=== PATIENT | male | born 1940 | race Caucasian/White ===

== ENCOUNTER 2016-11-06 07:42 | Emergency (ER) | payer MEDICARE, OTHER ==
[2016-11-06] MEDS ORDERED: amLODIPine 5 MG TABLET PO STA (09:21)
[2016-11-06] MEDS ORDERED: amLODIPine 5 MG TABLET ONE (09:27)
== END 2016-11-06 09:39 | disposition home or self-care (01) ==
DX: I15.9 Secondary hypertension, unspecified (principal); E87.1 Hypo-osmolality and hyponatremia; R73.9 Hyperglycemia, unspecified; I49.3 Ventricular premature depolarization; F03.90 Unspecified dementia, unspecified severity, without behavioral disturbance, psychotic disturbance, mood disturbance, and anxiety
CPT/HCPCS: 80053; 81003; 83690; 85025; 93005; 93010; 99283; 99285; A9270

== ENCOUNTER 2016-12-14 09:40 | Outpatient (CLI) | payer MEDICARE, OTHER | END 2016-12-14 09:41 | disposition home or self-care (01) | DX: I10 Essential (primary) hypertension (principal) ==

== ENCOUNTER 2017-06-06 07:26 | Outpatient (CLI) | payer MEDICARE, OTHER ==
--- NOTE | 2017-06-06 09:10 | Ultrasound Report ---
ULTRASOUND ANTERIOR ABDOMINAL WALL: 06/06/2017 CLINICAL INDICATION: Anterior swelling. TECHNIQUE: Real-time scanning was performed with patient service representative static images obtained. FINDINGS: Ultrasound of the region of swelling identified by the patient in the epigastric region wa s performed. There is no evidence of an abdominal wall hernia. There is an incidental 5-mm lipoma i n the anterior subcutaneous fat. No other mass is identified. IMPRESSION: NO EVIDENCE OF AN ANTERIOR ABDOMINAL WALL HERNIA. JOB #: [id number] EXT JOB #:[id number]
== END 2017-06-06 07:27 | disposition home or self-care (01) ==
LOC: DI 07:26
PROVIDERS: ATTEND Internal Medicine Gastroenterology
DX: R19.00 Intra-abdominal and pelvic swelling, mass and lump, unspecified site (principal)
CPT/HCPCS: 76705

== ENCOUNTER 2018-01-22 07:10 | Outpatient (CLI) | payer MEDICARE, OTHER ==
[2018-01-22 12:48] LABS: ALBUMIN 4.4 g/dL (3.2-5.5); ALBUMIN/GLOBULIN RATIO 1.6 (1.0-2.2); BILIRUBIN,TOTAL 0.6 mg/dL (0.2-1.0); CALCIUM 9.3 mg/dL (8.5-10.3); CREATININE 0.9 mg/dL (0.6-1.2); TOTAL PROTEIN 7.2 g/dL (6.7-8.2)
[2018-01-22 12:59] LABS: HB2 TOTAL 12.4 g/dL; HEMOGLOBIN A1C 0.46 g/dL; HEMOGLOBIN A1C % 5.5 % (4.6-6.2)
== END 2018-01-22 07:11 | disposition home or self-care (01) ==
LOC: LAB.WCP 07:10
PROVIDERS: ATTEND Family Medicine
DX: E11.9 Type 2 diabetes mellitus without complications (principal); R27.8 Other lack of coordination; I63.9 Cerebral infarction, unspecified; I10 Essential (primary) hypertension
CPT/HCPCS: 36415; 80053; 82043; 83036

== ENCOUNTER 2018-06-11 08:21 | Outpatient (CLI) | payer MEDICARE, OTHER ==
[2018-06-11 12:25] LABS: BASOPHILS # (AUTO) 0.1 10^3/uL (0.0-0.1); BASOPHILS % (AUTO) 0.8 %; EOSINOPHILS # (AUTO) 0.3 10^3/uL (0.0-0.7); EOSINOPHILS % (AUTO) 4.2 %; HGB - HEMOGLOBIN 12.4 g/dL (14.0-18.0); LYMPHOCYTES # (AUTO) 1.4 10^3/uL (1.5-3.5); LYMPHOCYTES % (AUTO) 20.6 %; MEAN CORPUSCULAR HEMOGLOBIN 35.4 pg (27.0-31.0); MEAN CORPUSCULAR VOLUME 98.3 fL (80.0-94.0); MEAN PLATELET VOLUME 10.2 fL (7.4-11.4); MONOCYTES # (AUTO) 0.6 10^3/uL (0.0-1.0); MONOCYTES % (AUTO) 8.8 %; NEUTROPHILS # (AUTO) 4.4 10^3/uL (1.5-6.6); NEUTROPHILS % (AUTO) 65.6 %; PLT - PLATELET COUNT 165 10^3/uL (130-450); RED CELL DISTRIBUTION WIDTH 12.6 % (12.0-15.0); WHITE BLOOD COUNT 6.8 x10^3/uL (4.8-10.8)
[2018-06-11 13:20] LABS: HB2 TOTAL 12.9 g/dL; HEMOGLOBIN A1C 0.52 g/dL; HEMOGLOBIN A1C % 5.8 % (4.6-6.2)
[2018-06-11 13:27] LABS: CHOL/HDL RATIO 2.3 (<5.0); CHOLESTEROL 118 mg/dL; HDL CHOLESTEROL 51 mg/dL; LDL CHOLESTEROL,CALCULATED 54 mg/dL; LDL/HDL RATIO 1.1 (<3.6); VLDL CHOLESTEROL 13 mg/dL
== END 2018-06-11 08:22 | disposition home or self-care (01) ==
LOC: LAB.WCP 08:21
PROVIDERS: ATTEND Physician Assistant Medical
DX: E11.9 Type 2 diabetes mellitus without complications (principal); I63.9 Cerebral infarction, unspecified; I10 Essential (primary) hypertension
CPT/HCPCS: 36415; 80061; 83036; 83540; 83721; 84443; 84466; 85025

== ENCOUNTER 2018-06-13 08:00 | Outpatient (CLI) | payer MEDICARE, OTHER ==
[2018-06-13 12:57] LABS: FERRITIN 162.8 ng/mL (23.9-336.2)
[2018-06-13 13:01] LABS: FOLATE 20.22 ng/mL (5.90 - >24.8)
[2018-06-13 13:02] LABS: ALBUMIN 4.1 g/dL (3.2-5.5); ALBUMIN/GLOBULIN RATIO 1.4 (1.0-2.2); BILIRUBIN,TOTAL 0.7 mg/dL (0.2-1.0); CALCIUM 9.1 mg/dL (8.5-10.3); TOTAL PROTEIN 7.1 g/dL (6.7-8.2)
== END 2018-06-13 08:01 ==
LOC: LAB.WCP 08:00
PROVIDERS: ATTEND Family Medicine
DX: D64.9 Anemia, unspecified (principal); E11.9 Type 2 diabetes mellitus without complications
CPT/HCPCS: 36415; 80053; 82607; 82728; 82746; 83540; 84466

== ENCOUNTER 2018-07-18 11:31 | Outpatient (CLI) | payer MEDICARE, OTHER ==
[2018-07-18 18:37] LABS: BASOPHILS % (AUTO) 0.7 %; EOSINOPHILS # (AUTO) 0.2 10^3/uL (0.0-0.7); EOSINOPHILS % (AUTO) 3.6 %; HGB - HEMOGLOBIN 12.5 g/dL (14.0-18.0); LYMPHOCYTES # (AUTO) 1.4 10^3/uL (1.5-3.5); LYMPHOCYTES % (AUTO) 20.4 %; MEAN CORPUSCULAR HEMOGLOBIN 34.9 pg (27.0-31.0); MEAN CORPUSCULAR HGB CONC 34.9 g/dL (32.0-36.0); MEAN CORPUSCULAR VOLUME 99.7 fL (80.0-94.0); MEAN PLATELET VOLUME 10.4 fL (7.4-11.4); MEAN RETIC VALUE 117.7; MONOCYTES # (AUTO) 0.5 10^3/uL (0.0-1.0); NEUTROPHILS # (AUTO) 4.6 10^3/uL (1.5-6.6); NEUTROPHILS % (AUTO) 67.3 %; PLT - PLATELET COUNT 168 10^3/uL (130-450); RED BLOOD COUNT 3.58 10^6/uL (4.70-6.10); RED CELL DISTRIBUTION WIDTH 12.6 % (12.0-15.0); WHITE BLOOD COUNT 6.8 x10^3/uL (4.8-10.8)
[2018-07-18 20:00] LABS: % IRON SATURATION 31 % (20-50); IRON 82 ug/dL (45-182); TOTAL IRON BINDING CAPACITY 262 ug/dL (250-450); TRANSFERRIN 187 mg/dL (180-329)
== END 2018-07-18 11:32 | disposition home or self-care (01) ==
LOC: LAB.WCP 11:31
PROVIDERS: ATTEND Family Medicine
DX: D64.9 Anemia, unspecified (principal)
CPT/HCPCS: 36415; 82728; 83540; 84466; 85025; 85044

== ENCOUNTER 2018-10-02 08:00 | Outpatient (CLI) | payer MEDICARE, OTHER ==
[2018-10-02 13:19] LABS: BASOPHILS % (AUTO) 0.5 %; EOSINOPHILS # (AUTO) 0.3 10^3/uL (0.0-0.7); HGB - HEMOGLOBIN 12.4 g/dL (14.0-18.0); LYMPHOCYTES # (AUTO) 1.6 10^3/uL (1.5-3.5); LYMPHOCYTES % (AUTO) 24.7 %; MEAN CORPUSCULAR HEMOGLOBIN 34.7 pg (27.0-31.0); MEAN CORPUSCULAR HGB CONC 35.2 g/dL (32.0-36.0); MEAN CORPUSCULAR VOLUME 98.6 fL (80.0-94.0); MEAN PLATELET VOLUME 10.5 fL (7.4-11.4); MONOCYTES # (AUTO) 0.6 10^3/uL (0.0-1.0); MONOCYTES % (AUTO) 9.4 %; NEUTROPHILS # (AUTO) 4.1 10^3/uL (1.5-6.6); NEUTROPHILS % (AUTO) 61.4 %; PLT - PLATELET COUNT 152 10^3/uL (130-450); RED BLOOD COUNT 3.56 10^6/uL (4.70-6.10); RED CELL DISTRIBUTION WIDTH 12.8 % (12.0-15.0); WHITE BLOOD COUNT 6.7 x10^3/uL (4.8-10.8)
[2018-10-02 13:38] LABS: ALBUMIN 4.3 g/dL (3.2-5.5); ALBUMIN/GLOBULIN RATIO 1.5 (1.0-2.2); BILIRUBIN,TOTAL 0.7 mg/dL (0.2-1.0); CALCIUM 9.4 mg/dL (8.5-10.3); CREATININE 1.1 mg/dL (0.6-1.2); TOTAL PROTEIN 7.1 g/dL (6.7-8.2)
[2018-10-02 13:50] LABS: HB2 TOTAL 12.9 g/dL; HEMOGLOBIN A1C 0.52 g/dL; HEMOGLOBIN A1C % 5.8 % (4.6-6.2)
== END 2018-10-02 23:59 | disposition home or self-care (01) ==
LOC: LAB.WCP 08:00
PROVIDERS: ATTEND Family Medicine
DX: E11.9 Type 2 diabetes mellitus without complications (principal)
CPT/HCPCS: 36415; 80053; 82043; 83036; 85025

== ENCOUNTER 2019-11-09 11:32 | Outpatient (CLI) | payer MEDICARE, OTHER ==
[2019-11-09 12:27] LABS: CHOLESTEROL 142 mg/dL; HDL CHOLESTEROL 48 mg/dL; LDL CHOLESTEROL,CALCULATED 69 mg/dL; LDL/HDL RATIO 1.4 (<3.6); VLDL CHOLESTEROL 25 mg/dL
== END 2019-11-09 11:33 | disposition home or self-care (01) ==
LOC: LAB 11:32
PROVIDERS: ATTEND Psychiatry & Neurology Neurology
DX: I63.9 Cerebral infarction, unspecified (principal)
CPT/HCPCS: 36415; 80061; 83721

== ENCOUNTER 2019-12-14 14:55 | Outpatient (CLI) | payer MEDICARE, OTHER ==
[2019-12-14 18:19] LABS: BASOPHILS # (AUTO) 0.1 10^3/uL (0.0-0.1); BASOPHILS % (AUTO) 0.7 %; EOSINOPHILS # (AUTO) 0.2 10^3/uL (0.0-0.7); EOSINOPHILS % (AUTO) 2.8 %; LYMPHOCYTES # (AUTO) 1.8 10^3/uL (1.5-3.5); LYMPHOCYTES % (AUTO) 25.9 %; MEAN CORPUSCULAR HEMOGLOBIN 32.5 pg (27.0-31.0); MEAN CORPUSCULAR HGB CONC 32.9 g/dL (32.0-36.0); MEAN CORPUSCULAR VOLUME 98.8 fL (80.0-94.0); MEAN PLATELET VOLUME 11.5 fL (7.4-11.4); MONOCYTES # (AUTO) 0.6 10^3/uL (0.0-1.0); NEUTROPHILS # (AUTO) 4.4 10^3/uL (1.5-6.6); NEUTROPHILS % (AUTO) 62.3 %; PLT - PLATELET COUNT 182 10^3/uL (130-450); RED BLOOD COUNT 3.38 10^6/uL (4.70-6.10); RED CELL DISTRIBUTION WIDTH 11.9 % (12.0-15.0); WHITE BLOOD COUNT 7.1 x10^3/uL (4.8-10.8)
[2019-12-14 18:43] LABS: HB2 TOTAL 11.6 g/dL; HEMOGLOBIN A1C 0.45 g/dL; HEMOGLOBIN A1C % 5.7 % (4.6-6.2)
[2019-12-14 18:46] LABS: ALBUMIN 3.9 g/dL (3.2-5.5); ALBUMIN/GLOBULIN RATIO 1.3 (1.0-2.2); BILIRUBIN,TOTAL 0.4 mg/dL (0.2-1.0); CALCIUM 9.1 mg/dL (8.5-10.3); TOTAL PROTEIN 6.9 g/dL (6.7-8.2)
[2019-12-14 18:49] LABS: CREATININE,URINE 155.1 mg/dL; PROTEIN/CREATININE RATIO,URINE 0.1 (<=0.2)
== END 2019-12-14 23:59 | disposition home or self-care (01) ==
LOC: LAB.WCP 14:55
PROVIDERS: ATTEND Family Medicine
DX: D64.9 Anemia, unspecified (principal); R26.89 Other abnormalities of gait and mobility; E11.9 Type 2 diabetes mellitus without complications; I10 Essential (primary) hypertension; R63.0 Anorexia
CPT/HCPCS: 36415; 80053; 82570; 83036; 84134; 84156; 84443; 85025

== ENCOUNTER 2020-03-10 11:50 | Outpatient (CLI) | payer MEDICARE, OTHER | END 2020-03-10 11:51 | disposition critical access hospital (66) | LOC: EMS 11:50 | PROVIDERS: ATTEND Surgery | DX: Z03.89 Encounter for observation for other suspected diseases and conditions ruled out (principal); Z79.02 Long term (current) use of antithrombotics/antiplatelets; W18.39XA Other fall on same level, initial encounter; W22.8XXA Striking against or struck by other objects, initial encounter; Y92.481 Parking lot as the place of occurrence of the external cause | CPT/HCPCS: A0425; A0429 ==

== ENCOUNTER 2020-03-10 11:54 | Emergency (ER) | payer MEDICARE, OTHER ==
[2020-03-10 12:23] LABS: BASOPHILS # (AUTO) 0.1 10^3/uL (0.0-0.1); EOSINOPHILS # (AUTO) 0.3 10^3/uL (0.0-0.7); EOSINOPHILS % (AUTO) 4.8 %; HGB - HEMOGLOBIN 10.8 g/dL (14.0-18.0); LYMPHOCYTES # (AUTO) 1.6 10^3/uL (1.5-3.5); LYMPHOCYTES % (AUTO) 22.8 %; MEAN CORPUSCULAR HEMOGLOBIN 33.8 pg (27.0-31.0); MEAN CORPUSCULAR HGB CONC 34.3 g/dL (32.0-36.0); MEAN CORPUSCULAR VOLUME 98.4 fL (80.0-94.0); MEAN PLATELET VOLUME 10.4 fL (7.4-11.4); MONOCYTES # (AUTO) 0.7 10^3/uL (0.0-1.0); MONOCYTES % (AUTO) 9.2 %; NEUTROPHILS # (AUTO) 4.4 10^3/uL (1.5-6.6); NEUTROPHILS % (AUTO) 61.8 %; PLT - PLATELET COUNT 171 10^3/uL (130-450); RED CELL DISTRIBUTION WIDTH 11.9 % (12.0-15.0); WHITE BLOOD COUNT 7.1 x10^3/uL (4.8-10.8)
[2020-03-10 12:34] LABS: ALBUMIN/GLOBULIN RATIO 1.3 (1.0-2.2); BILIRUBIN,TOTAL 0.8 mg/dL (0.2-1.0); CALCIUM 9.1 mg/dL (8.5-10.3); CREATININE 1.2 mg/dL (0.6-1.2); TOTAL PROTEIN 7.1 g/dL (6.7-8.2)
[2020-03-10] MEDS: SODIUM CHLORIDE 0.9% 1,000 ML IV STA (12:48)
--- NOTE | 2020-03-10 13:03 | XRAY Report ---
Reason: Chest Pain Procedure Date: 03/10/2020 Accession Number: [id number] / [id number] Procedure: XR - Chest 1 View X-Ray CPT Code: 12241 Final Report FULL RESULT: EXAM: CHEST RADIOGRAPHY EXAM DATE: 03/10/2020 12:13 PM. CLINICAL HISTORY: Chest Pain. COMPARISON: None. TECHNIQUE: 1 view. FINDINGS: Lungs/Pleura: No focal opacities evident. No pleural effusion. No pneumothorax. Decreased lung volumes Mediastinum: Within exam limitations, the cardiomediastinal contour is normal. Other: Cardiac rhythm monitor IMPRESSION: No active cardiopulmonary disease RADIA
--- NOTE | 2020-03-10 13:31 | CT Report ---
Reason: fall/trauma Procedure Date: 03/10/2020 Accession Number: [id number] / [id number] Procedure: CT - CERVICAL SPINE WO CPT Code: Final Report FULL RESULT: EXAM: CT CERVICAL SPINE WITHOUT CONTRAST DATE: 03/10/2020 12:39 PM. HISTORY: Acute pain due to trauma. COMPARISONS: HEAD W/O 09/16/2017 11:42 AM. TECHNIQUE: Thin-section axial images were acquired of the cervical spine without contrast. Post-processing: Coronal and sagittal reformats. Other: None. In accordance with CT protocol optimization, one or more of the following dose reduction techniques were utilized for this exam: automated exposure control, adjustment of mA and/or KV based on patient size, or use of iterative reconstructive technique. FINDINGS: Alignment: No scoliosis or spondylolisthesis. Bones: No fracture or bone lesion. Interspace Levels/Facets: There is mild diffuse degenerative disk and facet disease seen throughout the mid and lower aspects of the cervical spine. The bony central canal is relatively pain. Musculature: Normal. No fatty atrophy. Other: The paravertebral and prevertebral soft tissues are unremarkable. The lung apices are clear. IMPRESSION: No acute findings. Mild degenerative changes seen. RADIA
--- NOTE | 2020-03-10 13:45 | CT Report ---
Reason: head trauma, anticoagulated Procedure Date: 03/10/2020 Accession Number: [id number] / [id number] Procedure: CT - HEAD WO CPT Code: Final Report FULL RESULT: EXAM: CT HEAD EXAM DATE: 03/10/2020 12:39 PM. CLINICAL HISTORY: Head trauma, anticoagulated. Fall/trauma. COMPARISON: HEAD W/O 09/16/2017 11:42 AM Report from a BRAIN MRI W/O 09/17/2017 10:09 AM (images not presently available).. TECHNIQUE: Multiaxial CT images were obtained from the foramen magnum to the vertex. Reformats: Sagittal and coronal. IV contrast: None. In accordance with CT protocol optimization, one or more of the following dose reduction techniques were utilized for this exam: automated exposure control, adjustment of mA and/or KV based on patient size, or use of iterative reconstructive technique. FINDINGS: Parenchyma: No intraparenchymal hemorrhage. No evidence of mass, midline shift, or CT findings of acute infarction. Berrios-white differentiation is distinct. Diffuse chronic microangiopathic white matter changes are redemonstrated. 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 Extraaxial Spaces: Normal for age. No subdural or epidural collections identified. Ventricles: Lateral ventricles and third ventricle prominence, greater than the sulcal prominence, again demonstrated, without significant change. Sinuses and orbits: Imaged paranasal sinuses, orbits, and mastoids show no significant abnormality. Bones: No evidence of fracture or calvarial defect. Other: None. IMPRESSION: 1. Generalized age-related cortical atrophic changes without evidence of definite acute intracranial abnormality. No intrarenal hemorrhage. 2. 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 3. Ventricular prominence, greater than sulcal prominence, without significant change. Differential diagnosis includes central volume loss and normal pressure hydrocephalus. RADIA
--- NOTE | 2020-03-10 14:04 | ED Physician Documentation ---
History of Present Illness - Stated complaint Stated Complaint: GLF - Chief complaint Chief Complaint: Trauma Hd/Nk - History obtained from History obtained from: Patient - Additonal information Additional information: Patient comes emergency department via EMS after losing his balance and falling against a parked car next to him while in the store parking lot with his . Patient states he does not remember the incident at all. He has no complaints, stating only that he is "embarrassed. Patient denies any nausea or vomiting. No chest pain or shortness of breath. He has had several strokes in the past and has some degree of poor balance at baseline, as well as mild slowness of response. Patient denies any worsening of this recently. PD PAST MEDICAL HISTORY - Past Medical History Past Medical History: Yes Cardiovascular: Hypertension GI: GERD - Past Surgical History Past Surgical History: Yes HEENT: Tonsil/Adenoidectomy - Present Medications Home Medications: Ambulatory Orders Medication Instructions Recorded Confirmed Omeprazole [PriLOSEC] 20 mg PO DAILY 11/06/16 11/10/19 Chlorthalidone 12.5 mg PO DAILY 09/17/17 11/10/19 Cranberry Fruit Extract [Cranberry] 600 mg PO BID 09/17/17 11/10/19 Krill/[place]-3/Dha/Epa/Lipids 1 each PO DAILY 09/17/17 11/10/19 [Krill Oil 350 mg Softgel] Loratadine [Claritin] 10 mg PO DAILY 09/17/17 11/10/19 Multivitamin [Theragran] 1 tab PO DAILY 09/17/17 11/10/19 [place]-3/Dha/Epa/Fish Oil [Fish Oil 1,000 mg PO BID 09/17/17 11/10/19 1,000 mg Softgel] Atorvastatin [Lipitor] 10 mg PO QPM 12/30/18 11/10/19 Clopidogrel [Plavix] 75 mg PO ONCE 12/30/18 11/10/19 Tamsulosin [Flomax] 0.4 mg PO ONCE 12/30/18 11/10/19 Aspirin [Elodia] 81 mg PO DAILYWM 01/20/19 11/10/19 raNITIdine HCL [Zantac] 150 mg PO DAILY 04/21/19 11/10/19 - Allergies Allergies/Adverse Reactions: Allergies Allergy/AdvReac Type Severity Reaction Status Date / Time amlodipine Allergy Unknown Verified 03/11/20 07:55 melon Allergy Anaphylaxis Verified 03/10/20 12:02 Tetanus Vaccines and Toxoid Allergy Anaphylaxis Verified 03/10/20 12:02 cillins Allergy Unknown Uncoded 03/10/20 12:02 - Social History Does the pt smoke?: No Smoking Status: Never smoker Does the pt drink ETOH?: No Does the pt have substance abuse?: No - Immunizations Immunizations are current?: Yes - POLST Patient has POLST: No Results - Vitals Vitals: Oxygen O2 Source Room air - Labs Labs: Laboratory Tests 03/10/20 03/10/20 03/10/20 12:00 12:00 12:00 WBC 7.1 RBC 3.20 L Hgb 10.8 L Hct 31.5 L MCV 98.4 H MCH 33.8 H MCHC 34.3 RDW 11.9 L Plt Count 171 MPV 10.4 Neut # (Auto) 4.4 Lymph # (Auto) 1.6 [place] # (Auto) 0.7 Eos # (Auto) 0.3 Baso # (Auto) 0.1 Absolute Nucleated RBC 0.00 Nucleated RBC % 0.0 Sodium 138 Potassium 4.2 Chloride 105 Carbon Dioxide 26 Anion Gap 7.0 BUN 25 H Creatinine 1.2 Estimated GFR (MDRD) 58 L Glucose 126 H Calcium 9.1 Total Bilirubin 0.8 AST 23 ALT 21 Alkaline Phosphatase 63 Troponin I High Sens < 2.3 L Total Protein 7.1 Albumin 4.0 Globulin 3.1 Albumin/Globulin Ratio 1.3 Lipase 37 - Rads (name of study) CT head Radiology: Final report received, EMP read indepedently, See rad report CT C-spine Radiology: Final report received, EMP read indepedently, See rad report PD MEDICAL DECISION MAKING - ED course Complexity details: reviewed results, re-evaluated patient, considered differential, d/w patient ED course: PT was worked up with labs and CT scans of the head and neck, which were unremarkable. The pt continued to have no complaints in the ED, and I felt he was stable for d/c home. He has been given instructions regarding need for follow-up and the usual indications for return. Departure - Departure Disposition: 01 Home, Self Care Clinical Impression: Closed head injury Qualifiers: Encounter type: initial encounter Qualified Code(s): S09.90XA - Unspecified injury of head, initial encounter Condition: Stable Instructions: ED Head Injury Closed Comments: Your labs and EKG look great, and there is no evidence of any acute abnormalities on your CT scans. Please follow-up with your primary care physician if you continue to have further balance issues. Discharge Date/Time: 03/10/20 14:11
[2020-03-10 14:05] VITALS: BP 139/58
== END 2020-03-10 14:11 | disposition home or self-care (01) ==
LOC: EDUNIT# → ED 11:54
DX: S09.90XA Unspecified injury of head, initial encounter (principal); W01.198A Fall on same level from slipping, tripping and stumbling with subsequent striking against other object, initial encounter; Y92.481 Parking lot as the place of occurrence of the external cause; I69.898 Other sequelae of other cerebrovascular disease; R26.81 Unsteadiness on feet; M50.320 Other cervical disc degeneration, mid-cervical region, unspecified level; I10 Essential (primary) hypertension; Z79.02 Long term (current) use of antithrombotics/antiplatelets; Z79.82 Long term (current) use of aspirin
CPT/HCPCS: 36415; 70450; 71045; 72125; 80053; 83690; 84484; 85025; 93005; 96360; 99281

== ENCOUNTER 2020-12-26 08:00 | Outpatient (CLI) | payer MEDICARE, OTHER | END 2020-12-26 08:01 | disposition EMS.NT | LOC: EMS 08:00 | DX: Z03.89 Encounter for observation for other suspected diseases and conditions ruled out (principal) ==

== ENCOUNTER 2021-01-05 13:52 | Emergency (ER) | payer MEDICARE, OTHER ==
[2021-01-05] MEDS ORDERED: SODIUM CHLORIDE 0.9% 1,000 ML IV STA (14:26)
--- NOTE | 2021-01-05 14:27 | ED Physician Documentation ---
History of Present Illness - Stated complaint Stated Complaint: MALE - Chief complaint Chief Complaint: Abd Pain - Additonal information Additional information: 80-year-old male presents the emergency department for evaluation of testicular pain as well as increased episodes of urinary incontinence that has been progressively occurring over the last 2 to 3 days. He has had no fevers vomiting. No abdominal pain or diarrhea. 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 most of history is obtained from . Pt appears very well overall Review of Systems Constitutional: denies: Fever Eyes: reports: Reviewed and negative Ears: reports: Reviewed and negative Nose: reports: Reviewed and negative Throat: reports: Reviewed and negative Cardiac: reports: Reviewed and negative Respiratory: reports: Reviewed and negative GI: denies: Abdominal Pain, Nausea, Vomiting, Constipation, Diarrhea : reports: Incontinent, Other (Generalized nonfocal groin discomfort.). denies: Dysuria, Frequency Skin: denies: Rash, Lesions Musculoskeletal: reports: Neck pain Neurologic: reports: Reviewed and negative PD PAST MEDICAL HISTORY - Past Medical History Cardiovascular: Hypertension GI: GERD - Past Surgical History Past Surgical History: Yes HEENT: Tonsil/Adenoidectomy - Present Medications Home Medications: Ambulatory Orders Medication Instructions Recorded Confirmed Omeprazole [PriLOSEC] 20 mg PO DAILY 11/06/16 01/05/21 Cranberry Fruit Extract [Cranberry] 600 mg PO BID 09/17/17 01/05/21 Krill/[place]-3/Dha/Epa/Lipids 1 each PO DAILY 09/17/17 01/05/21 [Krill Oil 350 mg Softgel] Loratadine [Claritin] 10 mg PO DAILY 09/17/17 01/05/21 Multivitamin [Theragran] 1 tab PO DAILY 09/17/17 01/05/21 [place]-3/Dha/Epa/Fish Oil [Fish Oil 1,000 mg PO BID 09/17/17 01/05/21 1,000 mg Softgel] Atorvastatin [Lipitor] 10 mg PO QPM 12/30/18 01/05/21 Clopidogrel [Plavix] 75 mg PO ONCE 12/30/18 01/05/21 Tamsulosin [Flomax] 0.4 mg PO ONCE 12/30/18 01/05/21 Aspirin [Elodia] 81 mg PO DAILYWM 01/20/19 01/05/21 Carbidopa/Levodopa [Carbidopa-Levo 0.5 tab PO TID 05/31/20 01/05/21 ER 25-100 Tab] Lisinopril [Prinivil] 5 mg PO DAILY 05/31/20 01/05/21 Sertraline [Zoloft] 50 mg PO DAILY 05/31/20 01/05/21 Tamsulosin HCl [Flomax] 0.4 mg PO DAILY #7 01/05/21 - Allergies Allergies/Adverse Reactions: Allergies Allergy/AdvReac Type Severity Reaction Status Date / Time amlodipine Allergy Unknown Verified 08/30/20 14:34 chlorthalidone Allergy Unknown Verified 01/05/21 14:04 melon Allergy Anaphylaxis Verified 08/30/20 14:34 montelukast [From Singulair] Allergy Unknown Verified 01/05/21 14:04 Tetanus Vaccines and Toxoid Allergy Anaphylaxis Verified 08/30/20 14:34 donepezil [From Aricept] AdvReac Unknown Verified 01/05/21 14:04 fluticasone [From Flonase] AdvReac Nausea Verified 01/05/21 14:04 cillins Allergy Unknown Uncoded 08/30/20 14:34 - Social History Does the pt smoke?: No Smoking Status: Never smoker Does the pt drink ETOH?: No Does the pt have substance abuse?: No - Immunizations Immunizations are current?: Yes - POLST Patient has POLST: No PD ED PE EXPANDED - General General: Alert, No acute distress - Neck Neck: Supple w/out meningeal sx. No: Adenopathy - Cardiac Cardiac: Regular Rate, Radial strong equal, Pedal strong equal, Cap refill < 2 sec. No: Murmur Present - Respiratory Respiratory: Clear to ausultation adalid. No: Distress, Labored - Abdomen Abdomen: Normal Bowel sounds. No: Tender to palpation - Male Male : Circumcised, Testes descended adalid, Normal lie/cremastaric, Tenderness (bilateral testicular tenderness with palpation. No swelling, erythema, masses noted). No: Testicular Mass - Derm Derm: Normal color. No: Warm and dry - Neuro Neuro: Alert and Oriented X 3, Confused - GCS Eye Opening: Spontaneous Motor: Obeys Commands Verbal: Oriented Total: 15 Results - Vitals Vitals: Vital Signs - 24 hr 01/05/21 01/05/21 13:57 16:14 Temperature 37 C Heart Rate 71 65 Respiratory 16 18 Rate Blood Pressure 120/45 L 129/63 O2 Saturation 98 96 Oxygen O2 Source Room air - Labs Labs: Laboratory Tests 01/05/21 01/05/21 01/05/21 14:40 14:40 15:15 WBC 6.5 RBC 2.99 L Hgb 10.3 L Hct 29.7 L MCV 99.3 H MCH 34.4 H MCHC 34.7 RDW 11.9 L Plt Count 161 MPV 10.0 Neut # (Auto) 4.1 Lymph # (Auto) 1.5 [place] # (Auto) 0.6 Eos # (Auto) 0.2 Baso # (Auto) 0.1 Absolute Nucleated RBC 0.00 Nucleated RBC % 0.0 Sodium 137 Potassium 4.4 Chloride 102 Carbon Dioxide 25 Anion Gap 10.0 BUN 35 H Creatinine 1.3 H Estimated GFR (MDRD) 53 L Glucose 119 H Calcium 9.4 Total Bilirubin 0.5 AST 23 ALT 14 Alkaline Phosphatase 69 Total Protein 6.9 Albumin 3.8 Globulin 3.1 Albumin/Globulin Ratio 1.2 Lipase 38 Urine Color YELLOW Urine Clarity CLEAR Urine pH 5.5 Ur Specific [place] 1.025 Urine Protein NEGATIVE Urine Glucose (UA) NEGATIVE Urine Ketones NEGATIVE Urine Occult Blood SMALL H Urine Nitrite NEGATIVE Urine Bilirubin NEGATIVE Urine Urobilinogen 0.2 (NORMAL) Ur Leukocyte Esterase NEGATIVE Urine RBC 6-10 H Urine WBC 0-3 Ur Squamous Epith Cells RARE Squamous Urine Bacteria Rare Ur Microscopic Review INDICATED Urine Culture Comments NOT INDICATED - Rads (name of study) Testicular US Radiology: See rad report, Other (per technologist; no acute findings) CT abd Radiology: Final report received (Striking calculus at the right UVJ measuring 2 mm. Questionable right minimal hydroureter. Additional punctate nonobstructing calculus in the right kidney. Diverticulosis without-itis.) PD MEDICAL DECISION MAKING - ED course Complexity details: reviewed results, re-evaluated patient, considered differential Departure - Departure Clinical Impression: Calculus of ureterovesical junction (UVJ) Hematuria Qualifiers: Hematuria type: other microscopic Qualified Code(s): R31.29 - Other microscopic hematuria Testicular pain, unspecified Qualifiers: Laterality: bilateral Qualified Code(s): N50.811 - Right testicular pain Incontinence Qualifiers: Incontinence type: urinary Urinary Incontinence type: unspecified incontinence Qualified Code(s): R32 - Unspecified urinary incontinence Condition: Stable Record reviewed to determine appropriate education?: Yes Instructions: ED Stone Renal W Colic Follow-Up: Nithin Velarde MD [Provider Admit Priv/Credential] - Prescriptions: Tamsulosin HCl [Flomax] 0.4 mg PO DAILY #7 Comments: You were seen today in the emergency department for 2 days of testicular pain and incontinence. Your screening labs show that your mildly dehydrated. We did give you 1 L of fluid. The urine did show blood. The ultrasound of the testicles was unremarkable but the CAT scan of your abdomen did show a small ureter stone at the junction to the bladder. This is small enough that it should typically pass however it is causing your discomfort. I have prescribed a medication called Flomax that should help you pass the stone more easily. Be careful with this medication it can make you dizzy or more prone to falls. It is important to discuss this ED visit with your primary care doctor. I have given you the name of a urologist in [place] to follow-up with. If at any point you develop fevers, flank pain uncontrolled vomiting suddenly severe or different pain then please return immediately to the ER.
[2021-01-05 14:45] LABS: BASOPHILS # (AUTO) 0.1 10^3/uL (0.0-0.1); BASOPHILS % (AUTO) 0.8 %; EOSINOPHILS # (AUTO) 0.2 10^3/uL (0.0-0.7); EOSINOPHILS % (AUTO) 3.1 %; HCT - HEMATOCRIT 29.7 % (42.0-52.0); HGB - HEMOGLOBIN 10.3 g/dL (14.0-18.0); LYMPHOCYTES # (AUTO) 1.5 10^3/uL (1.5-3.5); LYMPHOCYTES % (AUTO) 22.6 %; MEAN CORPUSCULAR HEMOGLOBIN 34.4 pg (27.0-31.0); MEAN CORPUSCULAR HGB CONC 34.7 g/dL (32.0-36.0); MEAN CORPUSCULAR VOLUME 99.3 fL (80.0-94.0); MONOCYTES # (AUTO) 0.6 10^3/uL (0.0-1.0); MONOCYTES % (AUTO) 9.8 %; NEUTROPHILS # (AUTO) 4.1 10^3/uL (1.5-6.6); NEUTROPHILS % (AUTO) 63.4 %; PLT - PLATELET COUNT 161 10^3/uL (130-450); RED BLOOD COUNT 2.99 10^6/uL (4.70-6.10); RED CELL DISTRIBUTION WIDTH 11.9 % (12.0-15.0); WHITE BLOOD COUNT 6.5 x10^3/uL (4.8-10.8)
[2021-01-05 14:56] LABS: ALBUMIN 3.8 g/dL (3.2-5.5); ALBUMIN/GLOBULIN RATIO 1.2 (1.0-2.2); BILIRUBIN,TOTAL 0.5 mg/dL (0.2-1.0); CALCIUM 9.4 mg/dL (8.5-10.3); CREATININE 1.3 mg/dL (0.6-1.2); POTASSIUM 4.4 mmol/L (3.5-5.0); TOTAL PROTEIN 6.9 g/dL (6.7-8.2)
[2021-01-05 15:23] LABS: BILIRUBIN,URINE NEGATIVE (NEGATIVE); CLARITY,URINE CLEAR (CLEAR); GLUCOSE, URINE (UA) NEGATIVE (NEGATIVE); KETONES,URINE (UA) NEGATIVE (NEGATIVE); LEUKOCYTE ESTERASE, URINE NEGATIVE (NEGATIVE); NITRITE,URINE NEGATIVE (NEGATIVE); OCCULT BLOOD,URINE SMALL (NEGATIVE); PH,URINE 5.5 PH (5.0-7.5); PROTEIN,URINE NEGATIVE (NEGATIVE); UROBILINOGEN,URINE 0.2 (NORMAL) E.U./dL (NORMAL)
[2021-01-05 15:31] LABS: BACTERIA,URINE Rare /HPF (None Seen); SQUAMOUS EPITHELIAL CELL,UR RARE Squamous (<= Few); WBC,URINE 0-3 /HPF (0-3)
--- NOTE | 2021-01-05 17:41 | CT Report ---
PROCEDURE: Abdomen/Pelvis WO INDICATIONS: ? Renal colic; hematuria TECHNIQUE: Noncontrast 5 mm thick sections acquired from the diaphragms to the symphysis. 5 mm coronal and sagi ttal reformats were then performed. For radiation dose reduction, the following was used: automated exposure control, adjustment of mA and/or kV according to patient size. COMPARISON: None. FINDINGS: Image quality: Excellent. ABDOMEN: Lung bases: Basilar peripheral reticular thickening likely due to mild fibrosis. No pleural effusion. Heart size is normal. Solid organs: Liver and spleen are normal in size. Gallbladder is unremarkable. Pancreas is normal in contours. No adrenal nodules. Kidneys are normal in size. There is an obstructing calculus at t he right UVJ measuring 2 mm, (). Question of minimal right-sided hydroureter. Additional nonobstr ucting calculus in the right kidney measuring 2 mm. Peritoneum and bowel: Unenhanced bowel loops demonstrate normal wall thickness and caliber. Divertic ulosis. Normal appendix. No free fluid or air. Nodes and vessels: No retroperitoneal or mesenteric adenopathy by size criteria. Yeni mid abdominal mesentery with small is enteric lymph nodes. Aorta and inferior vena cava are normal in caliber. Mo derate calcified arthroscopic plaque. Miscellaneous: Tiny fat-containing umbilical hernia. PELVIS: Genitourinary: Bladder is only partially distended but appears unremarkable. Miscellaneous: No definite inguinal hernias or adenopathy. Bones: No suspicious bony lesions. Bilateral L5 pars defect. No vertebral body compression fracture s. IMPRESSION: 1. Obstructing calculus at the right UVJ measuring 2 mm. Question of minimal right hydroureter. 2. Additional punctate nonobstructing calculus in the right kidney. 3. Diverticulosis without diverticulitis. 4. Mid-abdomen yeni mesentery with small mesenteric nodes. Clinical significance of this finding is uncertain. This could be seen in mesenteric panniculitis/sclerosing mesenteritis. Reviewed by: Gopal Alvarez MD on 01/05/2021 4:40 PM [email or web address] Approved by: Gopal Alvarez MD on 01/05/2021 4:40 PM AKDT Station ID: [id number]
--- NOTE | 2021-01-05 17:42 | Ultrasound Report ---
PROCEDURE: Testicle w/Doppler INDICATIONS: testicular pain TECHNIQUE: Real-time scanning was performed of the scrotum and testicles, with image documentation. Color and p ulse Doppler interrogation was performed of both testicles. COMPARISON: None. FINDINGS: Right: Testicle is normal in size at 4.3 x 2.5 x 2.6 cm. No discrete testicular mass identified. Epi didymis is normal in overall size and morphology. There is a small epididymal head cyst or spermatoce le measuring up to 0.5 cm. No hydrocele or varicoceles. Overlying scrotal skin is normal in thicknes s. Left: Testicle is normal in size at 4 x 2.2 x 2.7 cm. No discrete testicular mass identified. Epidid ymis is normal in overall size and morphology. There are a few anechoic epididymal cysts or spermatoc eles, with the largest measuring up to 0.7 x 0.6 x 0.5 cm. There is a trace left hydrocele. No varico bernard. Overlying scrotal skin is normal in thickness. There is a probable scrotal jay measuring up to 0.5 cm and the left scrotum. Doppler: Color and pulse Doppler demonstrate patent and symmetric arterial flow in both testicles. IMPRESSION: 1. No definite acute abnormality. No evidence of testicular torsion at this time. 2. Bilateral epididymal head cysts or spermatoceles. Reviewed by: Aroldo Rebolledo MD on 01/05/2021 5:40 PM PDT Approved by: Aroldo Rebolledo MD on 01/05/2021 5:40 PM PDT Station ID: [id number]
[2021-01-05 19:03] VITALS: BP 140/60
== END 2021-01-05 18:44 | disposition home or self-care (01) ==
LOC: ED 13:52
DX: N20.1 Calculus of ureter (principal); R31.29 Other microscopic hematuria; R32 Unspecified urinary incontinence; N50.811 Right testicular pain; N50.812 Left testicular pain; N43.3 Hydrocele, unspecified; G20 Parkinson's disease; I10 Essential (primary) hypertension; Z79.82 Long term (current) use of aspirin
CPT/HCPCS: 36415; 80053; 81001; 81003; 83690; 85025; 87086; 93975; 96360; 99284

== ENCOUNTER 2021-01-10 07:52 | Outpatient (CLI) | payer MEDICARE, OTHER ==
[2021-01-10 08:26] LABS: ALBUMIN 4.2 g/dL (3.2-5.5); ALBUMIN/GLOBULIN RATIO 1.3 (1.0-2.2); BILIRUBIN,TOTAL 0.5 mg/dL (0.2-1.0); CALCIUM 9.5 mg/dL (8.5-10.3); CREATININE 1.1 mg/dL (0.6-1.2); TOTAL PROTEIN 7.4 g/dL (6.7-8.2)
[2021-01-10 08:39] LABS: THYROID STIMULATING HORMONE 3.4 uIU/mL (0.34-5.60)
[2021-01-10 10:07] LABS: ESTIMATED AVERAGE GLUCOSE 114 mg/dL (70-100); HEMOGLOBIN A1c% 5.6 % (4.27-6.07)
== END 2021-01-10 07:53 | disposition home or self-care (01) ==
LOC: LAB 07:52
PROVIDERS: ATTEND Internal Medicine
DX: E11.9 Type 2 diabetes mellitus without complications (principal); F03.90 Unspecified dementia, unspecified severity, without behavioral disturbance, psychotic disturbance, mood disturbance, and anxiety
CPT/HCPCS: 36415; 80053; 83036; 84443

== ENCOUNTER 2021-01-25 13:59 | Outpatient (CLI) | payer MEDICARE, OTHER ==
--- NOTE | 2021-01-25 15:00 | XRAY Report ---
PROCEDURE: Abdomen 1 View X-Ray INDICATIONS: DISTAL URETERAL CALCULUS,RIGHT TECHNIQUE: 1 view of the abdomen were acquired. COMPARISON: None FINDINGS: Surgical changes and devices: None. Bowel: No pneumoperitoneum. The bowel gas pattern is normal. Soft tissues: No masses; visualized solid organ contours appear normal in size. No suspicious abdom inal calcifications. Bones: No suspicious bony abnormalities. IMPRESSION: The patient's known distal ureteral calculus is not seen by plain film. Reviewed by: Richard Askew MD on 01/25/2021 2:59 PM PDT Approved by: Richard Askew MD on 01/25/2021 2:59 PM PDT Station ID: [id number]
== END 2021-01-25 14:00 | disposition home or self-care (01) ==
LOC: DI 13:59
PROVIDERS: ATTEND Internal Medicine
DX: N20.1 Calculus of ureter (principal)

== ENCOUNTER 2021-08-24 13:43 | Outpatient (CLI) | payer MEDICARE, OTHER ==
[2021-08-24 18:11] LABS: CALCIUM 9.2 mg/dL (8.5-10.3); CREATININE 1.1 mg/dL (0.6-1.2); POTASSIUM 4.3 mmol/L (3.5-5.0)
[2021-08-24 18:32] LABS: THYROID STIMULATING HORMONE 3.09 uIU/mL (0.34-5.60)
== END 2021-08-24 23:59 | disposition home or self-care (01) ==
LOC: LAB.WCP 13:43
PROVIDERS: ATTEND Internal Medicine
DX: I10 Essential (primary) hypertension (principal); R60.0 Localized edema
CPT/HCPCS: 36415; 80048; 84443

== ENCOUNTER 2022-01-15 14:18 | Outpatient (CLI) | payer MEDICARE, OTHER ==
[2022-01-15 14:31] LABS: BASOPHILS # (AUTO) 0.1 10^3/uL (0.0-0.1); BASOPHILS % (AUTO) 0.7 %; EOSINOPHILS # (AUTO) 0.1 10^3/uL (0.0-0.7); EOSINOPHILS % (AUTO) 1.9 %; HCT - HEMATOCRIT 33.4 % (42.0-52.0); HGB - HEMOGLOBIN 11.6 g/dL (14.0-18.0); LYMPHOCYTES # (AUTO) 1.9 10^3/uL (1.5-3.5); MEAN CORPUSCULAR HEMOGLOBIN 34.7 pg (27.0-31.0); MEAN CORPUSCULAR HGB CONC 34.7 g/dL (32.0-36.0); MEAN PLATELET VOLUME 9.9 fL (7.4-11.4); MONOCYTES # (AUTO) 0.6 10^3/uL (0.0-1.0); MONOCYTES % (AUTO) 8.7 %; NEUTROPHILS # (AUTO) 4.2 10^3/uL (1.5-6.6); NEUTROPHILS % (AUTO) 61.6 %; PLT - PLATELET COUNT 146 10^3/uL (130-450); RED BLOOD COUNT 3.34 10^6/uL (4.70-6.10); RED CELL DISTRIBUTION WIDTH 12.4 % (12.0-15.0); WHITE BLOOD COUNT 6.9 x10^3/uL (4.8-10.8)
[2022-01-15 14:54] LABS: ESTIMATED AVERAGE GLUCOSE 126 mg/dL (70-100)
[2022-01-15 17:30] LABS: ALBUMIN 4.1 g/dL (3.2-5.5); ALBUMIN/GLOBULIN RATIO 1.2 (1.0-2.2); ALKALINE PHOSPHATASE 76 IU/L (42-121); ALT ALANINE AMINOTRANSFERASE 33 IU/L (10-60); AST ASPARTATE AMINOTRANSFERASE 33 IU/L (10-42); BILIRUBIN,TOTAL 0.6 mg/dL (0.2-1.0); BUN - BLOOD UREA NITROGEN 28 mg/dL (6-20); CHOL/HDL RATIO 2.4 (<5.0); CHOLESTEROL 131 mg/dL; CREATININE 1.2 mg/dL (0.6-1.2); GFR - MDRD 58 (>89); HDL CHOLESTEROL 55 mg/dL; LDL CHOLESTEROL,CALCULATED 60 mg/dL; LDL/HDL RATIO 1.1 (<3.6); TOTAL PROTEIN 7.5 g/dL (6.7-8.2); TRIGLYCERIDES 80 mg/dL; VLDL CHOLESTEROL 16 mg/dL
[2022-01-15 17:31] LABS: CALCIUM 9.6 mg/dL (8.5-10.3); CARBON DIOXIDE - CO2 27 mmol/L (21-32); CHLORIDE 102 mmol/L (101-111); GLUCOSE 131 mg/dL (70-100); POTASSIUM 4.2 mmol/L (3.5-5.0); SODIUM 140 mmol/L (135-145)
== END 2022-01-15 14:19 | disposition home or self-care (01) ==
LOC: LAB 14:18
PROVIDERS: ATTEND Internal Medicine
DX: I12.9 Hypertensive chronic kidney disease with stage 1 through stage 4 chronic kidney disease, or unspecified chronic kidney disease (principal); E11.22 Type 2 diabetes mellitus with diabetic chronic kidney disease; N18.31 Chronic kidney disease, stage 3a
CPT/HCPCS: 36415; 80053; 80061; 83036; 83721; 85025

== ENCOUNTER → 2022-09-23 | Outpatient (CLI) | payer MEDICARE, OTHER | END | disposition EMS.NT | LOC: EMS 16:49 | DX: Z03.89 Encounter for observation for other suspected diseases and conditions ruled out (principal) ==

== ENCOUNTER 2022-09-28 09:31 | Outpatient (CLI) | payer MEDICARE, OTHER ==
[2022-09-28 10:06] LABS: BASOPHILS % (AUTO) 0.6 %; EOSINOPHILS # (AUTO) 0.4 10^3/uL (0.0-0.7); EOSINOPHILS % (AUTO) 5.7 %; HCT - HEMATOCRIT 32.5 % (42.0-52.0); HGB - HEMOGLOBIN 11.1 g/dL (14.0-18.0); LYMPHOCYTES # (AUTO) 1.6 10^3/uL (1.5-3.5); LYMPHOCYTES % (AUTO) 25.6 %; MEAN CORPUSCULAR HEMOGLOBIN 33.8 pg (27.0-31.0); MEAN CORPUSCULAR HGB CONC 34.2 g/dL (32.0-36.0); MEAN CORPUSCULAR VOLUME 99.1 fL (80.0-94.0); MEAN PLATELET VOLUME 10.1 fL (7.4-11.4); MONOCYTES # (AUTO) 0.6 10^3/uL (0.0-1.0); MONOCYTES % (AUTO) 8.9 %; NEUTROPHILS # (AUTO) 3.6 10^3/uL (1.5-6.6); PLT - PLATELET COUNT 161 10^3/uL (130-450); RED BLOOD COUNT 3.28 10^6/uL (4.70-6.10); RED CELL DISTRIBUTION WIDTH 12.1 % (12.0-15.0); WHITE BLOOD COUNT 6.2 x10^3/uL (4.8-10.8)
[2022-09-28 10:36] LABS: THYROID STIMULATING HORMONE 4.57 uIU/mL (0.34-5.60)
[2022-09-28 10:42] LABS: ALBUMIN 3.9 g/dL (3.2-5.5); ALBUMIN/GLOBULIN RATIO 1.2 (1.0-2.2); ALKALINE PHOSPHATASE 72 IU/L (42-121); ALT ALANINE AMINOTRANSFERASE 27 IU/L (10-60); AST ASPARTATE AMINOTRANSFERASE 31 IU/L (10-42); BILIRUBIN,TOTAL 0.7 mg/dL (0.2-1.0); BUN - BLOOD UREA NITROGEN 23 mg/dL (6-20); CALCIUM 9.2 mg/dL (8.5-10.3); CARBON DIOXIDE - CO2 24 mmol/L (21-32); CHLORIDE 103 mmol/L (101-111); CHOL/HDL RATIO 2.6 (<5.0); CHOLESTEROL 143 mg/dL; CREATININE 1.1 mg/dL (0.6-1.2); GFR - MDRD 64 (>89); GLUCOSE 117 mg/dL (70-100); HDL CHOLESTEROL 56 mg/dL; LDL CHOLESTEROL,CALCULATED 73 mg/dL; LDL/HDL RATIO 1.3 (<3.6); POTASSIUM 4.2 mmol/L (3.5-5.0); SODIUM 137 mmol/L (135-145); TOTAL PROTEIN 7.1 g/dL (6.7-8.2); TRIGLYCERIDES 70 mg/dL; VLDL CHOLESTEROL 14 mg/dL
== END 2022-09-28 09:32 | disposition home or self-care (01) ==
LOC: LAB 09:31
PROVIDERS: ATTEND Internal Medicine
DX: E11.9 Type 2 diabetes mellitus without complications (principal); G25.9 Extrapyramidal and movement disorder, unspecified; I10 Essential (primary) hypertension
CPT/HCPCS: 36415; 80053; 80061; 83721; 84443; 85025

== ENCOUNTER 2022-11-03 08:59 | Emergency (ER) | payer MEDICARE, OTHER ==
[2022-11-03] MEDS ORDERED: SODIUM CHLORIDE 0.9% 1,000 ML IV STA (11:18)
--- NOTE | 2022-11-03 11:20 | ED Physician Documentation ---
History of Present Illness - Stated complaint Stated Complaint: WEAK/TIRED - Chief complaint Chief Complaint: General - History obtained from History obtained from: Patient, Family - History of Present Illness Timing: How many weeks ago (1) - Additonal information Additional information: Shaheen Hope is an 81-year-old male who has had a CVA and multiple TIAs prev iously and has advanced dementia. His indicates that he has been less active than normal he is having a harder time getting out of his chair. He is talking less and he is stopped eating and drinking. She is concerned that he is developed some urinary incontinence. She is wondering if maybe he has developed a urinary tract infection. She indicates that he was without his Flomax for 3 days and he has restarted his Flomax. Review of Systems Unable to obtain: Dementia, Other (hx from ) Constitutional: denies: Fever Nose: denies: Congestion Throat: denies: Sore throat Cardiac: denies: Chest pain / pressure Respiratory: denies: Dyspnea, Cough GI: denies: Abdominal Pain, Vomiting, Constipation, Diarrhea : reports: Incontinent. denies: Dysuria, Frequency Skin: denies: Rash Musculoskeletal: denies: Neck pain, Back pain, Extremity pain PD PAST MEDICAL HISTORY - Past Medical History Past Medical History: Yes Cardiovascular: Hypertension, High cholesterol Neuro: Dementia, CVA, TIA GI: GERD - Past Surgical History Past Surgical History: Yes HEENT: Tonsil/Adenoidectomy - Present Medications Home Medications: Ambulatory Orders Medication Instructions Recorded Confirmed Omeprazole [PriLOSEC] 20 mg PO DAILY 11/06/16 11/03/22 Krill/Blair-3/Dha/Epa/Lipids 1 each PO DAILY 09/17/17 11/03/22 [Krill Oil 350 mg Softgel] Loratadine [Claritin] 10 mg PO DAILY 09/17/17 11/03/22 Multivitamin [Theragran] 1 tab PO DAILY 09/17/17 11/03/22 Blair-3/Dha/Epa/Fish Oil [Fish Oil 1,000 mg PO BID 09/17/17 11/03/22 1,000 mg Softgel] Atorvastatin [Lipitor] 10 mg PO QPM 12/30/18 11/03/22 Clopidogrel [Plavix] 75 mg PO DAILY 12/30/18 11/03/22 Aspirin [Elodia] 81 mg PO DAILYWM 01/20/19 11/03/22 Sertraline [Zoloft] 50 mg PO DAILY PM 05/31/20 11/03/22 Tamsulosin HCl [Flomax] 0.4 mg PO DAILY #7 01/05/21 11/03/22 Cholecalciferol [Vitamin D3] 5,000 unit PO DAILY 11/03/22 11/03/22 Mecobalamin [B12 Active] 1,000 mcg PO DAILY 11/03/22 11/03/22 Sennosides/Docusate Sodium 1 each PO BID 11/03/22 11/03/22 [Senna-Docusate Sodium Tablet] - Allergies Allergies/Adverse Reactions: Allergies Allergy/AdvReac Type Severity Reaction Status Date / Time amlodipine Allergy Unknown Verified 11/03/22 09:19 chlorthalidone Allergy Unknown Verified 11/03/22 09:19 melon Allergy Anaphylaxis Verified 11/03/22 09:19 montelukast [From Singulair] Allergy Unknown Verified 11/03/22 09:19 Tetanus Vaccines and Toxoid Allergy Anaphylaxis Verified 11/03/22 09:19 donepezil [From Aricept] AdvReac Unknown Verified 11/03/22 09:19 fluticasone [From Flonase] AdvReac Nausea Verified 11/03/22 09:19 cillins Allergy Unknown Uncoded 11/03/22 09:19 - Social History Does the pt smoke?: No Smoking Status: Never smoker Does the pt drink ETOH?: No Does the pt have substance abuse?: No - Immunizations Immunizations are current?: Yes - POLST Patient has POLST: No PD ED PE NORMAL - Vitals Vital signs reviewed: Yes - General General: No acute distress, Well developed/nourished, Other (vacant stare and one word answers. ) - HEENT HEENT: Atraumatic, PERRL, EOMI - Neck Neck: Supple, no meningeal sign, No bony TTP - Cardiac Cardiac: RRR, No murmur - Respiratory Respiratory: No respiratory distress, Clear bilaterally - Abdomen Abdomen: Soft, Non tender - Back Back: No CVA TTP, No spinal TTP - Derm Derm: Normal color, Warm and dry, No rash - Extremities Extremities: No deformity, No edema - Neuro Neuro: Alert and oriented X 3, cocoa mill operator 2-12 intact, No motor deficit, No sensory deficit, Normal speech Eye Opening: Spontaneous Motor: Obeys Commands Verbal: Oriented GCS Score: 15 - Psych Psych: Normal mood, Normal affect Results - Vitals Vitals: Vital Signs - 24 hr 11/03/22 11/03/22 11/03/22 09:16 09:49 13:09 Temperature 36.3 C L Heart Rate 61 56 L 56 L Respiratory 16 16 15 Rate Blood Pressure 133/47 H 144/61 H 146/57 H O2 Saturation 96 98 99 11/03/22 13:56 Temperature Heart Rate 55 L Respiratory 16 Rate Blood Pressure 138/55 H O2 Saturation 98 Oxygen O2 Source Room air - Labs Labs: Laboratory Tests 11/03/22 11/03/22 11/03/22 11:18 11:18 11:42 WBC 6.2 RBC 3.45 L Hgb 11.5 L Hct 33.9 L MCV 98.3 H MCH 33.3 H MCHC 33.9 RDW 12.0 Plt Count 160 MPV 11.2 Neut # (Auto) 4.0 Lymph # (Auto) 1.5 Gove # (Auto) 0.6 Eos # (Auto) 0.2 Baso # (Auto) 0.1 Absolute Nucleated RBC 0.00 Nucleated RBC % 0.0 Sodium 134 L Potassium 4.1 Chloride 99 L Carbon Dioxide 27 Anion Gap 8.0 BUN 24 H Creatinine 1.3 H Estimated GFR (MDRD) 53 L Glucose 122 H Lactic Acid Calcium 9.3 Total Bilirubin 0.8 AST 26 ALT 24 Alkaline Phosphatase 61 Total Protein 7.2 Albumin 4.1 Globulin 3.1 Albumin/Globulin Ratio 1.3 Lipase 45 Urine Color YELLOW Urine Clarity CLEAR Urine pH 6.0 Ur Specific Jefferson >=1.030 H Urine Protein NEGATIVE Urine Glucose (UA) NEGATIVE Urine Ketones TRACE Urine Occult Blood NEGATIVE Urine Nitrite NEGATIVE Urine Bilirubin NEGATIVE Urine Urobilinogen 0.2 (NORMAL) Ur Leukocyte Esterase NEGATIVE Ur Microscopic Review NOT INDICATED Urine Culture Comments NOT INDICATED 11/03/22 11:45 WBC RBC Hgb Hct MCV MCH MCHC RDW Plt Count MPV Neut # (Auto) Lymph # (Auto) Gove # (Auto) Eos # (Auto) Baso # (Auto) Absolute Nucleated RBC Nucleated RBC % Sodium Potassium Chloride Carbon Dioxide Anion Gap BUN Creatinine Estimated GFR (MDRD) Glucose Lactic Acid 1.2 Calcium Total Bilirubin AST ALT Alkaline Phosphatase Total Protein Albumin Globulin Albumin/Globulin Ratio Lipase Urine Color Urine Clarity Urine pH Ur Specific Jefferson Urine Protein Urine Glucose (UA) Urine Ketones Urine Occult Blood Urine Nitrite Urine Bilirubin Urine Urobilinogen Ur Leukocyte Esterase Ur Microscopic Review Urine Culture Comments - Rads (name of study) chest Radiology: Prelim report reviewed (Impression: Finding is suggestive of chronic interstitial lung disease. Small infiltrate/atelectasis at bilateral lung bases cannot be excluded. No pleural effusion or pneumothorax.), EMP read indepedently Procedures - IVC sono (time) 1115 Bedside IVC sono: IVC measures (cm) (0.63), IVC collapsed c insp (cm) (complete), Profound dehydration (est 3 liter deficit desication encephalopathy.) PD Medical Decision Making - ED course Complexity details: reviewed old records, reviewed results, re-evaluated patient, considered differential, d/w patient, d/w family Reviewed Lab Results: We ordered and reviewed a complete blood count and chemistries as well as urinalysis on Mr. Hope. White blood cell count was normal hemoglobin and hematocrit were 11.5 and 33.9 consistent with his prior blood draws most recently 09/28/2022. And consistent with the patient's known anemia of chronic kidney disease. His electrolytes showed an elevated BUN and creatinine similar to what he has had on his previous blood draws. Urinalysis done showed a kristina ntrated urine with trace ketones. Social Determinants of Health: The patient has advanced dementia and is s/p CVA. He is living with his who appears capable of caring for him. He does not require lift assistance.There are not behavioral issues. ED course: 81-year-old Shaheen Hope presents to the emergency department with a week long history of failure to thrive. He has reduced his intake of food and water and has become weak. He is having more trouble using his lift assist chair. The patient's noticed this significant decline has been accompanied by some spontaneous incontinence and she is worried about the possibility of urinary tract infection. He does take some Flomax and was without it for 3 days. He has been on it now for 2 days. Here in the emergency department the patient does have a vacant stare but interacts when requested. On interrogation of the inferior vena cava with POCUS the patient is found to be profoundly dehydrated consistent with a range of desiccation encephalopathy. I discussed with the patient's her wishes for hydration and she indicated that she is not at this point ready for any type of withholding of medical treatment. We provided hydration with normal saline and the patient felt improved wanted to go home. I did discuss with the patient's and his daughter the potential for an exit strategy at some point as his dementia progresses. Departure - Departure Disposition: 01 Home, Self Care Clinical Impression: Dehydration Condition: Stable Instructions: ED Dehydration Follow-Up: Glen Dow MD [Primary Care Provider] - Comments: Today it appears that Shaheen was significantly, or profoundly dehydrated and we have provided some hydration with saline. He is not completely rehydrated at this point and additional fluids today are indicated. At some point Shaheen will not drink and a decision will need to be made about fluids again. We are here 24 hours a day and we are happy to rehydrate him when needed. Discharge Date/Time: 11/03/22 14:19
--- NOTE | 2022-11-03 11:53 | XRAY Report ---
PROCEDURE: Chest 1 View X-Ray INDICATIONS: chest pain TECHNIQUE: One view of the chest was acquired. COMPARISON: 03/10/2020. FINDINGS: Surgical changes and devices: None. Lungs and pleura: No pleural effusions or pneumothorax. Subtle patchy opacities in bilateral lower l cheryl sommers are seen. Chronic interstitial lung parenchymal disease is also noted with increased retic ular markings. Mediastinum: Mediastinal contours appear normal. Heart size is normal. Bones and chest wall: No suspicious bony lesions. Overlying soft tissues appear unremarkable. IMPRESSION: Finding is suggestive of chronic interstitial lung disease. Small infiltrate/atelectasis at bilateral lung bases cannot be excluded. No pleural effusion or pneumothorax. Reviewed by: Mayank Hassan MD on 11/03/2022 11:52 AM PST Approved by: Mayank Hassan MD on 11/03/2022 11:52 AM PST Station ID: [id number]
[2022-11-03 11:56] LABS: BASOPHILS # (AUTO) 0.1 10^3/uL (0.0-0.1); BASOPHILS % (AUTO) 0.8 %; EOSINOPHILS # (AUTO) 0.2 10^3/uL (0.0-0.7); EOSINOPHILS % (AUTO) 2.7 %; HCT - HEMATOCRIT 33.9 % (42.0-52.0); HGB - HEMOGLOBIN 11.5 g/dL (14.0-18.0); LYMPHOCYTES # (AUTO) 1.5 10^3/uL (1.5-3.5); LYMPHOCYTES % (AUTO) 23.5 %; MEAN CORPUSCULAR HEMOGLOBIN 33.3 pg (27.0-31.0); MEAN CORPUSCULAR HGB CONC 33.9 g/dL (32.0-36.0); MEAN CORPUSCULAR VOLUME 98.3 fL (80.0-94.0); MEAN PLATELET VOLUME 11.2 fL (7.4-11.4); MONOCYTES # (AUTO) 0.6 10^3/uL (0.0-1.0); MONOCYTES % (AUTO) 9.2 %; NEUTROPHILS % (AUTO) 63.6 %; PLT - PLATELET COUNT 160 10^3/uL (130-450); RED BLOOD COUNT 3.45 10^6/uL (4.70-6.10); WHITE BLOOD COUNT 6.2 x10^3/uL (4.8-10.8)
[2022-11-03 12:00] LABS: BILIRUBIN,URINE NEGATIVE (NEGATIVE); GLUCOSE, URINE (UA) NEGATIVE (NEGATIVE); KETONES,URINE (UA) TRACE mg/dL (NEGATIVE); LEUKOCYTE ESTERASE, URINE NEGATIVE (NEGATIVE); NITRITE,URINE NEGATIVE (NEGATIVE); OCCULT BLOOD,URINE NEGATIVE (NEGATIVE); PROTEIN,URINE NEGATIVE (NEGATIVE); UROBILINOGEN,URINE 0.2 (NORMAL) E.U./dL (NORMAL)
[2022-11-03 12:03] LABS: CLARITY,URINE CLEAR (CLEAR)
[2022-11-03 12:06] LABS: ALBUMIN 4.1 g/dL (3.2-5.5); ALBUMIN/GLOBULIN RATIO 1.3 (1.0-2.2); BILIRUBIN,TOTAL 0.8 mg/dL (0.2-1.0); CALCIUM 9.3 mg/dL (8.5-10.3); CREATININE 1.3 mg/dL (0.6-1.2); POTASSIUM 4.1 mmol/L (3.5-5.0); TOTAL PROTEIN 7.2 g/dL (6.7-8.2)
[2022-11-03 13:56] VITALS: BP 138/55
== END 2022-11-03 14:19 | disposition home or self-care (01) ==
LOC: ED 08:59
DX: E86.0 Dehydration (principal); F03.90 Unspecified dementia, unspecified severity, without behavioral disturbance, psychotic disturbance, mood disturbance, and anxiety; I10 Essential (primary) hypertension
CPT/HCPCS: 36415; 80053; 81001; 81003; 83605; 83690; 85025; 87040; 87086; 96360; 96361; 99284

== ENCOUNTER 2022-12-01 07:32 | Outpatient (CLI) | payer MEDICARE, OTHER | END 2022-12-01 07:33 | disposition left against medical advice (07) | LOC: EMS 07:32 | DX: R53.1 Weakness (principal); Z79.01 Long term (current) use of anticoagulants ==

== ENCOUNTER 2022-12-07 16:29 | Outpatient (CLI) | payer MEDICARE, OTHER | END 2022-12-07 16:30 | disposition EMS.NT | LOC: EMS 16:29 | DX: Z03.89 Encounter for observation for other suspected diseases and conditions ruled out (principal) ==

== ENCOUNTER 2023-01-21 04:06 | Outpatient (CLI) | payer MEDICARE, OTHER | END 2023-01-21 23:59 | disposition critical access hospital (66) | LOC: EMS 04:06 | DX: R53.1 Weakness (principal); W18.39XA Other fall on same level, initial encounter; Y92.002 Bathroom of unspecified non-institutional (private) residence as the place of occurrence of the external cause; Z79.01 Long term (current) use of anticoagulants; F03.90 Unspecified dementia, unspecified severity, without behavioral disturbance, psychotic disturbance, mood disturbance, and anxiety | CPT/HCPCS: A0425; A0429 ==

== ENCOUNTER 2023-01-21 04:19 | Emergency (ER) | payer MEDICARE, OTHER ==
--- NOTE | 2023-01-21 04:57 | ED Physician Documentation ---
History of Present Illness - Stated complaint Stated Complaint: GLF - Chief complaint Chief Complaint: Trauma Ch/Bk - History obtained from History obtained from: Patient, Family - Additonal information Additional information: Patient is an 82-year-old male with a history of strokes and dementia presenting for evaluation of unwitnessed fall.Patient states that he needed to use the bathroom and did not want to wake his as she was sleeping. He usually requires some assistance. He went to the bathroom and had finished urinating and was trying to get back to the bedroom when he fell. He is unsure of what made him fall but did have his walker in the bathroom. He is unsure if he hit his head.His heard him fall and quickly went to his attention. She found him responsive but having difficulty in getting up so EMS was called. EMS was able to help him up and he was able to ambulate for them at his baseline. He currently denies any complaints other than stating he has hurt his pride.He is on Plavix. Per and daughter at the bedside he has been doing well recently and they have been continuing to encourage his hydration as he had visits here in October related to dehydration. Review of Systems Unable to obtain: Dementia PD PAST MEDICAL HISTORY - Past Medical History Cardiovascular: Hypertension, High cholesterol Neuro: Dementia, CVA, TIA GI: GERD - Past Surgical History Past Surgical History: Yes HEENT: Tonsil/Adenoidectomy - Present Medications Home Medications: Ambulatory Orders Medication Instructions Recorded Confirmed Krill/Duncombe-3/Dha/Epa/Lipids 1 each PO DAILY 09/17/17 01/21/23 [Krill Oil 350 mg Softgel] Multivitamin [Theragran] 1 tab PO DAILY 09/17/17 01/21/23 Duncombe-3/Dha/Epa/Fish Oil [Fish Oil 1,000 mg PO BID 09/17/17 01/21/23 1,000 mg Softgel] Atorvastatin [Lipitor] 10 mg PO QPM 12/30/18 01/21/23 Clopidogrel [Plavix] 75 mg PO DAILY 12/30/18 01/21/23 Sertraline [Zoloft] 50 mg PO DAILY PM 05/31/20 01/21/23 Tamsulosin HCl [Flomax] 0.4 mg PO DAILY #7 01/05/21 01/21/23 Cholecalciferol [Vitamin D3] 5,000 unit PO DAILY 11/03/22 01/21/23 Mecobalamin [B12 Active] 1,000 mcg PO DAILY 11/03/22 01/21/23 Sennosides/Docusate Sodium 1 each PO BID 11/03/22 01/21/23 [Senna-Docusate Sodium Tablet] - Allergies Allergies/Adverse Reactions: Allergies Allergy/AdvReac Type Severity Reaction Status Date / Time amlodipine Allergy Unknown Verified 01/21/23 04:31 chlorthalidone Allergy Unknown Verified 01/21/23 04:31 melon Allergy Anaphylaxis Verified 01/21/23 04:31 montelukast [From Singulair] Allergy Unknown Verified 01/21/23 04:31 Tetanus Vaccines and Toxoid Allergy Anaphylaxis Verified 01/21/23 04:31 donepezil [From Aricept] AdvReac Unknown Verified 01/21/23 04:31 fluticasone [From Flonase] AdvReac Nausea Verified 01/21/23 04:31 cillins Allergy Unknown Uncoded 01/21/23 04:31 - Social History Does the pt smoke?: No Smoking Status: Never smoker Does the pt drink ETOH?: No Does the pt have substance abuse?: No - Immunizations Immunizations are current?: Yes - POLST Patient has POLST: No PD ED PE NORMAL - General General: Alert and oriented X 3, No acute distress, Well developed/nourished - HEENT HEENT: Atraumatic, PERRL, EOMI - Neck Neck: Supple, no meningeal sign, No bony TTP, C-Spine cleared by NEXUS criteria - Cardiac Cardiac: RRR, No murmur - Respiratory Respiratory: No respiratory distress, Clear bilaterally - Abdomen Abdomen: Soft, Non tender, Non distended - Back Back: No spinal TTP - Derm Derm: Warm and dry - Extremities Extremities: No deformity - Neuro Neuro: Alert and oriented X 3, animal tech 2-12 intact, No sensory deficit, Normal speech. No: No motor deficit (Mild weakness to right leg when compared to left, chronic per family from prior strokes) Results - Vitals Vitals: Vital Signs - 24 hr 01/21/23 01/21/23 01/21/23 04:18 05:02 05:29 Temperature 36.5 C Heart Rate 59 L 55 L 56 L Respiratory 20 15 18 Rate Blood Pressure 154/60 H 167/61 H 167/61 H O2 Saturation 100 97 97 Oxygen O2 Source Room air - Labs Labs: Laboratory Tests 01/21/23 01/21/23 04:32 04:32 WBC 6.7 RBC 3.50 L Hgb 11.8 L Hct 34.9 L MCV 99.7 H MCH 33.7 H MCHC 33.8 RDW 12.0 Plt Count 173 MPV 10.8 Neut # (Auto) 4.1 Lymph # (Auto) 1.7 Toombs # (Auto) 0.7 Eos # (Auto) 0.2 Baso # (Auto) 0.1 Absolute Nucleated RBC 0.00 Nucleated RBC % 0.0 Sodium 137 Potassium 4.7 Chloride 104 Carbon Dioxide 28 Anion Gap 5.0 L BUN 27 H Creatinine 1.2 Estimated GFR (MDRD) 58 L Glucose 139 H Calcium 9.3 Total Bilirubin 0.4 AST 29 ALT 30 Alkaline Phosphatase 69 Total Protein 7.0 Albumin 4.0 Globulin 3.0 Albumin/Globulin Ratio 1.3 PD Medical Decision Making - ED course Complexity details: reviewed results, re-evaluated patient, d/w patient, d/w family ED course: Patient is an 82-year-old male with a history of dementia and prior strokes presenting for evaluation after an unwitnessed fall. He is on Plavix. It is unclear if he hit his head. He is at his baseline and has no outward signs of injury. He has been ambulating at his baseline. Per family he has not recently been ill. His vital signs are stable. Head CT was obtained which I reviewed and is negative for signs of an intracranial hemorrhage.Screening labs are also obtained with a CBC and chemistries and appear to be at patient's baseline. Patient continues to have no complaints and the family has no additional concerns. They are comfortable with plan for discharge. They actually already have an appointment with his PCP this afternoon. Discussed concerning symptoms to return for. Departure - Departure Disposition: 01 Home, Self Care Clinical Impression: Fall at home Condition: Stable Instructions: ED Fall Uncertain Cause Comments: Shaheen was Evaluated after falling at home. His labs appear similar to his baseline. His head CT does not show any injury or bleeding from the fall. Please have close follow-up with his primary care doctor to discuss options on how to help Shaheen avoid falls in the future - Especially at night when wanting to go to the bathroom. Return to the ER with any new or concerning symptoms.
[2023-01-21 05:07] LABS: BASOPHILS # (AUTO) 0.1 10^3/uL (0.0-0.1); BASOPHILS % (AUTO) 0.9 %; EOSINOPHILS # (AUTO) 0.2 10^3/uL (0.0-0.7); EOSINOPHILS % (AUTO) 3.4 %; HCT - HEMATOCRIT 34.9 % (42.0-52.0); HGB - HEMOGLOBIN 11.8 g/dL (14.0-18.0); LYMPHOCYTES # (AUTO) 1.7 10^3/uL (1.5-3.5); LYMPHOCYTES % (AUTO) 25.7 %; MEAN CORPUSCULAR HEMOGLOBIN 33.7 pg (27.0-31.0); MEAN CORPUSCULAR HGB CONC 33.8 g/dL (32.0-36.0); MEAN CORPUSCULAR VOLUME 99.7 fL (80.0-94.0); MEAN PLATELET VOLUME 10.8 fL (7.4-11.4); MONOCYTES # (AUTO) 0.7 10^3/uL (0.0-1.0); MONOCYTES % (AUTO) 9.7 %; NEUTROPHILS # (AUTO) 4.1 10^3/uL (1.5-6.6); NEUTROPHILS % (AUTO) 60.2 %; PLT - PLATELET COUNT 173 10^3/uL (130-450); WHITE BLOOD COUNT 6.7 x10^3/uL (4.8-10.8)
[2023-01-21 05:17] LABS: ALBUMIN/GLOBULIN RATIO 1.3 (1.0-2.2); BILIRUBIN,TOTAL 0.4 mg/dL (0.2-1.0); CALCIUM 9.3 mg/dL (8.5-10.3); CREATININE 1.2 mg/dL (0.6-1.2); POTASSIUM 4.7 mmol/L (3.5-5.0)
[2023-01-21 06:38] VITALS: BP 158/60
--- NOTE | 2023-01-21 07:26 | CT Report ---
PROCEDURE: HEAD WO INDICATIONS: Unwitnessed fall, on Plavix TECHNIQUE: Noncontrast 4.5 mm thick angled axial sections acquired from the foramen magnum to the vertex. For r adiation dose reduction, the following was used: automated exposure control, adjustment of mA and/or kV according to patient size. COMPARISON: None. FINDINGS: Image quality: Excellent. CSF spaces: Basal cisterns are patent. No extra-axial fluid collections. Ventricles are normal in size and shape. Brain: No midline shift. No intracranial masses or hemorrhage. Berrios-white matter interface is norm al. Age-related volume loss and moderate to severe small vessel ischemic change. Intracranial caroti d gas collections. Skull and face: Calvarium and visualized facial bones are intact, without suspicious lesions. Sinuses: Visualized sinuses and mastoids are clear. IMPRESSION: No acute intracranial pathology Findings are concordant with preliminary interpretation provided by [facility]. Reviewed by: Maycol Colunga MD on 01/21/2023 7:24 AM PDT Approved by: Maycol Colunga MD on 01/21/2023 7:24 AM PDT Station ID: [id number]
== END 2023-01-21 06:00 | disposition home or self-care (01) ==
LOC: EDUNIT# → ED 04:19
DX: Z04.3 Encounter for examination and observation following other accident (principal); F03.90 Unspecified dementia, unspecified severity, without behavioral disturbance, psychotic disturbance, mood disturbance, and anxiety; Z79.01 Long term (current) use of anticoagulants
CPT/HCPCS: 36415; 80053; 85025; 99283; 99284

== ENCOUNTER 2023-04-02 08:08 | Outpatient (CLI) | payer MEDICARE, OTHER | END 2023-04-02 08:09 | disposition EMS.NT | LOC: EMS 08:08 | DX: Z03.89 Encounter for observation for other suspected diseases and conditions ruled out (principal) ==

== ENCOUNTER 2023-04-03 09:17 | Outpatient (CLI) | payer MEDICARE, OTHER | END 2023-04-03 23:59 | disposition EMS.NT | LOC: EMS 09:17 | DX: Z03.89 Encounter for observation for other suspected diseases and conditions ruled out (principal) ==

== ENCOUNTER 2023-04-22 08:37 | Outpatient (CLI) | payer MEDICARE, OTHER | END 2023-04-22 23:59 | disposition critical access hospital (66) | LOC: EMS 08:37 | DX: R53.1 Weakness (principal) | CPT/HCPCS: A0425; A0429 ==

== ENCOUNTER 2023-04-22 08:50 | Emergency (ER) | payer MEDICARE, OTHER ==
--- NOTE | 2023-04-22 08:54 | ED Physician Documentation ---
PD HPI ABD PAIN - Stated complaint Stated Complaint: ABD PX - History obtained from History obtained from: Patient, Family (spouse and daguhter (by phone)) - History of Present Illness Timing - onset: How many weeks ago (2-3) Timing - duration: Weeks (2-3 Weeks in particular of increased weakness and difficulty walking. Generally has had some element of decline over even 6 months but more notable in the last 2 to 3 weeks.) Timing - details: Gradual onset, Still present Quality: Cramping, Pain Location: Suprapubic Radiation: No: Chest, Lower back Associated symptoms: Loss of appetite. No: Vomiting, Weight loss Similar symptoms before: Has not had sx before Review of Systems Constitutional: denies: Fever, Chills Nose: denies: Congestion Throat: denies: Sore throat Respiratory: reports: Dyspnea. denies: Cough GI: denies: Vomiting, Diarrhea Musculoskeletal: denies: Back pain Neurologic: reports: Generalized weakness. denies: Focal weakness, Near syncope PD PAST MEDICAL HISTORY - Past Medical History Cardiovascular: Hypertension, High cholesterol Neuro: Dementia, CVA, TIA GI: GERD - Past Surgical History Past Surgical History: Yes HEENT: Tonsil/Adenoidectomy - Present Medications Home Medications: Ambulatory Orders Medication Instructions Recorded Confirmed Krill/[place]-3/Dha/Epa/Lipids 1 each PO DAILY 09/17/17 03/28/23 [Krill Oil 350 mg Softgel] Multivitamin [Theragran] 1 tab PO DAILY 09/17/17 03/28/23 [place]-3/Dha/Epa/Fish Oil [Fish Oil 1,000 mg PO BID 09/17/17 03/28/23 1,000 mg Softgel] Atorvastatin [Lipitor] 10 mg PO QPM 12/30/18 03/28/23 Clopidogrel [Plavix] 75 mg PO DAILY 12/30/18 03/28/23 Sertraline [Zoloft] 50 mg PO DAILY PM 05/31/20 03/28/23 Tamsulosin HCl [Flomax] 0.4 mg PO DAILY #7 01/05/21 03/28/23 Cholecalciferol [Vitamin D3] 5,000 unit PO DAILY 11/03/22 03/28/23 Mecobalamin [B12 Active] 1,000 mcg PO DAILY 11/03/22 03/28/23 Sennosides/Docusate Sodium 1 each PO BID 11/03/22 03/28/23 [Senna-Docusate Sodium Tablet] Albuterol Sulf [Ventolin Hfa 2 puffs INH BID 30 Days #1 each 04/22/23 Inhaler] Docusate Sodium 100Mg Capsule 100 mg PO DAILY #20 cap 04/22/23 [Colace 100Mg Capsule] cephALEXin [Keflex] 500 mg PO TID #20 cap 04/22/23 - Allergies Allergies/Adverse Reactions: Allergies Allergy/AdvReac Type Severity Reaction Status Date / Time amlodipine Allergy Unknown Verified 04/22/23 09:08 chlorthalidone Allergy Unknown Verified 04/22/23 09:08 melon Allergy Anaphylaxis Verified 04/22/23 09:08 montelukast [From Singulair] Allergy Unknown Verified 04/22/23 09:08 Tetanus Vaccines and Toxoid Allergy Anaphylaxis Verified 04/22/23 09:08 donepezil [From Aricept] AdvReac Unknown Verified 04/22/23 09:08 fluticasone [From Flonase] AdvReac Nausea Verified 04/22/23 09:08 cillins Allergy Unknown Uncoded 04/22/23 09:08 - Social History Does the pt smoke?: No Smoking Status: Never smoker Does the pt drink ETOH?: No Does the pt have substance abuse?: No - Immunizations Immunizations are current?: Yes - POLST Patient has POLST: No PD ED PE NORMAL - Vitals Vital signs reviewed: Yes - General General: Alert and oriented X 3, No acute distress, Well developed/nourished - HEENT HEENT: Pharynx benign - Neck Neck: Supple, no meningeal sign, No adenopathy - Cardiac Cardiac: RRR, No murmur - Respiratory Respiratory: Clear bilaterally - Abdomen Abdomen: Soft, Non tender - Back Back: No CVA TTP - Derm Derm: Normal color, Warm and dry - Extremities Extremities: No tenderness to palpate, No edema, No calf tenderness / cord - Neuro Neuro: Alert and oriented X 3, No motor deficit. No: Normal speech (mild dysarthria which stattes is from prior CVA. ) Eye Opening: Spontaneous Motor: Obeys Commands Verbal: Oriented GCS Score: 15 Results - Vitals Vitals: Vital Signs - 24 hr 04/22/23 04/22/23 04/22/23 09:02 11:25 15:52 Temperature 98.4 C H Heart Rate 63 59 L 62 Respiratory 16 20 19 Rate Blood Pressure 128/48 L 144/49 H 143/46 H O2 Saturation 98 98 99 04/22/23 17:11 Temperature Heart Rate 60 Respiratory 16 Rate Blood Pressure 145/65 H O2 Saturation 98 Oxygen O2 Source Room air - Labs Labs: Laboratory Tests 04/22/23 04/22/23 04/22/23 09:53 09:53 09:53 WBC 13.9 H RBC 3.45 L Hgb 11.7 L Hct 34.0 L MCV 98.6 H MCH 33.9 H MCHC 34.4 RDW 12.0 Plt Count 141 MPV 10.4 Neut # (Auto) 11.0 H Lymph # (Auto) 1.3 L [place] # (Auto) 1.4 H Eos # (Auto) 0.1 Baso # (Auto) 0.1 Absolute Nucleated RBC 0.00 Nucleated RBC % 0.0 Sodium 139 Potassium 4.0 Chloride 105 Carbon Dioxide 27 Anion Gap 7.0 BUN 25 H Creatinine 1.2 Estimated GFR (MDRD) 58 L Glucose 141 H Calcium 9.1 Magnesium 1.9 Total Bilirubin 1.0 AST 27 ALT 29 Alkaline Phosphatase 60 B-Natriuretic Peptide Total Protein 7.1 Albumin 3.7 Globulin 3.4 Albumin/Globulin Ratio 1.1 Lipase 29 TSH 1.60 Urine Color Urine Clarity Urine pH Ur Specific [place] Urine Protein Urine Glucose (UA) Urine Ketones Urine Occult Blood Urine Nitrite Urine Bilirubin Urine Urobilinogen Ur Leukocyte Esterase Urine RBC Urine WBC Ur Epithelial Cells Ur Squamous Epith Cells Urine Bacteria Ur Microscopic Review Urine Culture Comments 04/22/23 04/22/23 09:53 11:16 WBC RBC Hgb Hct MCV MCH MCHC RDW Plt Count MPV Neut # (Auto) Lymph # (Auto) [place] # (Auto) Eos # (Auto) Baso # (Auto) Absolute Nucleated RBC Nucleated RBC % Sodium Potassium Chloride Carbon Dioxide Anion Gap BUN Creatinine Estimated GFR (MDRD) Glucose Calcium Magnesium Total Bilirubin AST ALT Alkaline Phosphatase B-Natriuretic Peptide 125 H Total Protein Albumin Globulin Albumin/Globulin Ratio Lipase TSH Urine Color DARK YELLOW Urine Clarity CLEAR Urine pH 5.5 Ur Specific [place] >=1.030 H Urine Protein NEGATIVE Urine Glucose (UA) NEGATIVE Urine Ketones NEGATIVE Urine Occult Blood TRACE-INTA Urine Nitrite NEGATIVE Urine Bilirubin NEGATIVE Urine Urobilinogen 0.2 (NORMAL) Ur Leukocyte Esterase TRACE H Urine RBC 0-5 Urine WBC 6-10 H Ur Epithelial Cells RARE Renal Tubular Ur Squamous Epith Cells RARE Squamous Urine Bacteria Few Ur Microscopic Review INDICATED Urine Culture Comments INDICATED - Rads (name of study) chest xray Relevant Findings:: Prelim report reviewed (diffuse interstitial opacities, likely some edema. ), EMP independent interpretation of test, See rad report chest/abd CT Relevant Findings:: Prelim report reviewed (no acute process. Lots of stool in descending colon. ), See rad report lumbar CT Relevant Findings:: Prelim report reviewed (degenerative changes. Disc protrusion most at L2-L3 level leading to moderate to severe canal impingement. ), See rad report PD Medical Decision Making - ED course Complexity details: reviewed results, considered differential (general weakness and decline for months, with more notable weakness genearlized the past 1-2 weeks. The past few days, patient has not been able to support himself with walker. having troulbe supporting him getting up and with walker. They have a caregiver parts advisor but he was not there this wk), d/w patient (patient poor historian and most of history from . ), d/w family (spouse), d/w library sales consultant (Social Work talked with /patient daughter about options. want pt to remain in home as long as possibel and not placed in SNF. She asks abut Palliative care. ) Reviewed Lab Results: general weakness that has been progressive and likely relates to chronic condiition and neuroligic disease (parkinsons, dementia). However there can be other conditions that cause a tipping point. So will eval for infections, lytes abnormal, acute intracranial process such as bleed, tumor. CT chest/abd to eval medical causers of weakness (focal infection, masses), and labs for other wekness causes (blood count, lytes, blood sugar, TSH). Chest xray came back with results suggesting possibel lung edema. CT lumbar area with some disc portrusions. L2-L3 level is reasonably significant. Could consider some disc protrusion as a cause of general leg weakness and producing his symptoms/difficulty walking. Speaking against this is the general weakness, arms and legs. Departure - Departure Disposition: 01 Home, Self Care Clinical Impression: Muscle weakness, Generalized weakness, UTI (urinary tract infection) Condition: Stable Prescriptions: Docusate Sodium 100Mg Capsule [Colace 100Mg Capsule] 100 mg PO DAILY #20 cap cephALEXin [Keflex] 500 mg PO TID #20 cap Albuterol Sulf [Ventolin Hfa Inhaler] 2 puffs INH BID 30 Days #1 each Comments: We did do multiple imaging of the head and chest abdomen the low back. No signs of acute process in the head. The chest CT showed some mild emphysematous changes. We can try an inhaler twice daily to see if that helps with his breathing and cough. Otherwise follow-up with your primary care regarding any further treatments. The CT of the abdomen showed some moderate to large amount of stool but no other acute process. The CT of the low back showed some disc protrusion in the mid lumbar area encroaching some on this final canal space. It does not necessarily look severe enough to be causing weakness of the legs due to cord compression. However there can be some discomfort related to it. He would not really be a surgical candidate so I do not believe you would benefit from seeing a back surgeon etc. Otherwise blood test and urine test showed possibility of a bladder infection. He does not look septic. We can treat with an antibiotic for this pending the culture result which will result in 2 to 3 days and be more confirmatory if it was a true infection or not. I sent prescriptions to the [facility] pharmacy for an inhaler, antibiotic, stool softener. Continue with other medications and treatments. See if there is improvement in general strength and ability over the next several days or so. Discharge Date/Time: 04/22/23 17:12
[2023-04-22] MEDS: SODIUM CHLORIDE 0.9% 1,000 ML IV STA (10:00)
--- NOTE | 2023-04-22 10:06 | XRAY Report ---
PROCEDURE: Chest 1 View X-Ray INDICATIONS: chest pain TECHNIQUE: One view of the chest was acquired. COMPARISON: None. FINDINGS: Surgical changes and devices: None. Lungs and pleura: No pleural effusions or pneumothorax. Diffuse interstitial opacities. Mediastinum: Mediastinal contours appear normal. Heart size is normal. Bones and chest wall: No suspicious bony lesions. Overlying soft tissues appear unremarkable. IMPRESSION: Diffuse interstitial opacities, probably pulmonary edema. Reviewed by: Lucho An on 04/22/2023 10:05 AM PDT Approved by: Lucho An on 04/22/2023 10:05 AM PDT Station ID: [id number]
[2023-04-22 10:15] LABS: BASOPHILS # (AUTO) 0.1 10^3/uL (0.0-0.1); BASOPHILS % (AUTO) 0.4 %; EOSINOPHILS # (AUTO) 0.1 10^3/uL (0.0-0.7); EOSINOPHILS % (AUTO) 0.4 %; HGB - HEMOGLOBIN 11.7 g/dL (14.0-18.0); LYMPHOCYTES # (AUTO) 1.3 10^3/uL (1.5-3.5); LYMPHOCYTES % (AUTO) 9.3 %; MEAN CORPUSCULAR HEMOGLOBIN 33.9 pg (27.0-31.0); MEAN CORPUSCULAR HGB CONC 34.4 g/dL (32.0-36.0); MEAN CORPUSCULAR VOLUME 98.6 fL (80.0-94.0); MEAN PLATELET VOLUME 10.4 fL (7.4-11.4); MONOCYTES # (AUTO) 1.4 10^3/uL (0.0-1.0); MONOCYTES % (AUTO) 9.8 %; NEUTROPHILS % (AUTO) 79.6 %; PLT - PLATELET COUNT 141 10^3/uL (130-450); RED BLOOD COUNT 3.45 10^6/uL (4.70-6.10); WHITE BLOOD COUNT 13.9 x10^3/uL (4.8-10.8)
[2023-04-22 10:29] LABS: ALBUMIN 3.7 g/dL (3.2-5.5); ALBUMIN/GLOBULIN RATIO 1.1 (1.0-2.2); CALCIUM 9.1 mg/dL (8.5-10.3); CREATININE 1.2 mg/dL (0.6-1.2); MAGNESIUM 1.9 mg/dL (1.7-2.8); TOTAL PROTEIN 7.1 g/dL (6.7-8.2)
--- NOTE | 2023-04-22 10:37 | CT Report ---
PROCEDURE: LUMBAR SPINE WO INDICATIONS: 2-3 weeks increased leg weakness/trouble walking TECHNIQUE: Noncontrast 3 mm thick sections acquired from the T12 level to the sacrum. Sagittal and coronal refo rmats were constructed. For radiation dose reduction, the following was used: automated exposure co ntrol, adjustment of mA and/or kV according to patient size. COMPARISON: None. FINDINGS: Image quality: Excellent. Bones: There is normal bony alignment. No acute vertebral body compression fractures. No suspiciou s lytic or blastic bony lesions. Central spinal caliber is of normal overall caliber. Pars defects a t L5-S1. T12-L1: Moderate disc height loss. L1-L2: Moderate disc height loss with disc osteophyte complex. L2-L3: Broad-based disc bulge with superimposed central protrusion causing moderate to severe spin al canal narrowing. Mild right neural foraminal narrowing. L3-L4: Broad-based disc bulge with discussed by complex causing mild to moderate spinal canal narro wing. Mild facet hypertrophy. Mild bilateral neural foraminal narrowing. L4-L5: Broad-based disc bulge. Bilateral facet hypertrophy, left greater than right. Disc osteophyt e complex. Mild bilateral neural foraminal narrowing. L5-S1: Broad-based disc bulge. Bilateral facet arthrosis. Mild left neural foraminal narrowing. Soft tissues: No retroperitoneal masses or hematomas. Visualized aorta is normal in caliber. Moder ate burden of bilateral nonobstructing stones measuring no greater than 4 mm. Colonic diverticulosis without evidence of diverticulitis. IMPRESSION: No displaced fracture or traumatic subluxation. 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 This is most promine nt at L2-3, with a central protrusion causing moderate to severe spinal canal narrowing. Moderate burden of bilateral nonobstructing nephrolithiasis. Reviewed by: Lucho An on 04/22/2023 10:36 AM PDT Approved by: Lucho An on 04/22/2023 10:36 AM PDT Station ID: [id number]
--- NOTE | 2023-04-22 10:39 | CT Report ---
PROCEDURE: HEAD WO INDICATIONS: general weakness 2-3 weeks. TECHNIQUE: Noncontrast 4.5 mm thick angled axial sections acquired from the foramen magnum to the vertex. For r adiation dose reduction, the following was used: automated exposure control, adjustment of mA and/or kV according to patient size. COMPARISON: None. FINDINGS: Image quality: Excellent. CSF spaces: Basal cisterns are patent. No extra-axial fluid collections. Ventricles are normal in size and shape. Brain: No midline shift. No intracranial masses or hemorrhage. Berrios-white matter interface is norm al. Leukoaraiosis, commonly caused by chronic small vessel ischemic disease. Age-related volume loss . Skull and face: Calvarium and visualized facial bones are intact, without suspicious lesions. Sinuses: Visualized sinuses and mastoids are clear. IMPRESSION: No acute intracranial pathology Reviewed by: Lucho An on 04/22/2023 10:37 AM PDT Approved by: Lucho An on 04/22/2023 10:37 AM PDT Station ID: [id number]
[2023-04-22 11:26] LABS: BILIRUBIN,URINE NEGATIVE (NEGATIVE); GLUCOSE, URINE (UA) NEGATIVE (NEGATIVE); KETONES,URINE (UA) NEGATIVE (NEGATIVE); LEUKOCYTE ESTERASE, URINE TRACE (NEGATIVE); NITRITE,URINE NEGATIVE (NEGATIVE); OCCULT BLOOD,URINE TRACE-INTA (NEGATIVE); PH,URINE 5.5 PH (5.0-7.5); PROTEIN,URINE NEGATIVE (NEGATIVE); UROBILINOGEN,URINE 0.2 (NORMAL) E.U./dL (NORMAL)
[2023-04-22 11:28] LABS: CLARITY,URINE CLEAR (CLEAR)
[2023-04-22 11:38] LABS: RBC,URINE 0-5 /HPF (0-5); SQUAMOUS EPITHELIAL CELL,UR RARE Squamous (<= Few)
[2023-04-22 11:39] LABS: BACTERIA,URINE Few /HPF (None Seen)
[2023-04-22] MEDS ORDERED: iohexoL-300 100 ML VIAL ONE (13:15)
[2023-04-22] MEDS: iohexoL-300 100 ML VIAL IVP ONE (15:21)
--- NOTE | 2023-04-22 15:42 | CT Report ---
PROCEDURE: CHEST W INDICATIONS: infiltrates/etc on plain CXR CONTRAST: 100ml Omni 300 TECHNIQUE: After the administration of intravenous contrast, 1 mm axial images were acquired from the pulmonary apices through the posterior costophrenic angles. Axial 5 mm soft tissue kernel reconstructions were performed as well as 8 mm axial MIP and coronal and sagittal 5 mm reformations. For radiation dose reduction, the following was used: automated exposure control, adjustment of mA and/or kV according to patient size. COMPARISON: None. FINDINGS: Image quality: Excellent. Lungs and pleura: There is centrilobular emphysema is seen. No pleural effusion or pneumothorax. Cent ral and peripheral airway is patent. Scattered scarring/atelectasis in periphery of bilateral lung fi elds are noted with features suggestive of interstitial pulmonary fibrosis. Mediastinum: Heart size is enlarged. No pericardial effusion. No large vessel abnormality. No mediast inal adenopathy by size criteria. There is a small to moderate-sized hiatal hernia. Chest wall and lower neck: Thyroid is unremarkable. No axillary or supraclavicular adenopathy by size . Bones: No aggressive osseous abnormality. Degenerative disc disease throughout thoracic spine is seen with moderate kyphosis. No acute vertebral body compression fracture. Upper Abdomen: Please refer to CT of abdomen and pelvis findings.. IMPRESSION: 1. Moderate centrilobular emphysema and suggestion of interstitial pulmonary fibrosis. No focal infil trate, pleural effusion or pneumothorax. 2. Cardiomegaly, no pericardial effusion. No mediastinal or hilar lymphadenopathy by size criteria. M ild to moderate atherosclerotic disease. 3. Small to moderate-sized hiatal hernia. Reviewed by: Mayank Hassan MD on 04/22/2023 3:41 PM PDT Approved by: Mayank Hassan MD on 04/22/2023 3:41 PM PDT Station ID: [id number]
--- NOTE | 2023-04-22 15:46 | CT Report ---
PROCEDURE: ABDOMEN/PELVIS W INDICATIONS: weight loss/ poor appetite CONTRAST: 100ml Omni 300 TECHNIQUE: After the administration of IV contrast, 5 mm thick sections acquired from the diaphragms to the symp hysis. 5 mm thick coronal and sagittal reformats were acquired. For radiation dose reduction, the f ollowing was used: automated exposure control, adjustment of mA and/or kV according to patient size. COMPARISON: 01/05/2021 FINDINGS: Image quality: Excellent. Lung bases and heart: Please refer to CT of chest. Liver: No solid mass. Gallbladder and biliary tree: Gallbladder is distended. No calcified gallstones. No gallbladder wall thickening. No biliary ductal dilatation. Spleen: No splenomegaly. Pancreas: No pancreatic ductal dilation. Adrenals: No adrenal nodule. Kidneys and ureters: Punctate bilateral nonobstructing renal calculi are seen measures up to 3 mm in size in mid pole of right kidney. No hydronephrosis. No renal cystic lesion which requires follow up. No solid mass. Bowel and peritoneum: No bowel distension. No pathologic free fluid or free air. Large amount of feca l matter is seen in descending colon and sigmoid colon with fecal matter distending the rectum. Colon ic diverticulosis is seen without colonic wall thickening or mesenteric fat stranding. No abscess col lection. Lymph nodes: No central or retroperitoneal adenopathy. Vessels: No infrarenal aortic aneurysm. Moderate atherosclerotic disease in abdominal aorta is seen. PELVIS Reproductive organs: Unremarkable. Bladder: No abnormal wall thickening, accounting for underdistension. Pelvic lymph nodes: No pelvic adenopathy by size criteria. Bones: No aggressive osseous abnormality. Other: No significant ventral or inguinal hernia. IMPRESSION: 1. No acute inflammatory process is seen in abdomen or pelvis. 2. Significant distal colonic constipation and obstipation. 3. Bilateral nonobstructing renal calculi. No hydronephrosis or hydroureter. 4. Colonic diverticulosis without CT evidence of acute diverticulitis. Reviewed by: Mayank Hassan MD on 04/22/2023 3:44 PM PDT Approved by: Mayank Hassan MD on 04/22/2023 3:44 PM PDT Station ID: [id number]
[2023-04-22] MEDS: cephALEXin 250 MG CAPSULE PO STA (16:36)
[2023-04-22 17:16] VITALS: BP 145/65
== END 2023-04-22 17:12 | disposition home or self-care (01) ==
LOC: EDSEX → ED 08:50
DX: N39.0 Urinary tract infection, site not specified (principal); M62.81 Muscle weakness (generalized); G20 Parkinson's disease; F02.80 Dementia in other diseases classified elsewhere, unspecified severity, without behavioral disturbance, psychotic disturbance, mood disturbance, and anxiety; I10 Essential (primary) hypertension; E78.00 Pure hypercholesterolemia, unspecified; G45.9 Transient cerebral ischemic attack, unspecified; Z86.73 Personal history of transient ischemic attack (TIA), and cerebral infarction without residual deficits; Z79.899 Other long term (current) drug therapy; Z79.02 Long term (current) use of antithrombotics/antiplatelets
CPT/HCPCS: 36415; 51701; 70450; 71045; 71260; 72131; 74177; 80053; 81001; 83690; 83735; 83880; 84443; 85025; 87077; 87086; 87181; 99284; A9270; Q9967; 81003

== ENCOUNTER 2023-04-23 13:03 | Outpatient (CLI) | payer MEDICARE, OTHER | END 2023-04-23 23:59 | disposition EMS.NT | LOC: EMS 13:03 | DX: R53.1 Weakness (principal) ==